=== PATIENT | female | born 1950 | race Hispanic/Latino ===

== ENCOUNTER 2017-12-30 00:14 | Emergency (ER) | payer OTHER ==
[2017-12-30] MEDS ORDERED: NA CHLORIDE 0.9% 500 ML ONE (00:39)
[2017-12-30] MEDS ORDERED: ONDANSETRON 4 MG/2 ML VIAL ONE (00:39)
[2017-12-30 00:55] LABS: Potassium 4.3 mEq/L (3.6-5.0)
[2017-12-30 01:00] LABS: Absolute Lymphocytes (CBC) 0.9 K/uL (0.7-4.9); Absolute Monocytes 0.5 K/uL (0.1-1.3); Absolute Neutrophil 8.7 K/uL (1.8-8.0); Basophils % 0.6 % (0-1.3); Eosinophils % 2.1 % (0-4.4); Hematocrit 29.8 % (36.0-45.0); MCH 25.3 pg (27.0-35.0); MCV 81.1 fL (80-100); MPV 6.9 fL (7.6-11.3); Monocytes % 4.4 % (3.3-12.3); RBC Red Blood Cell Count 3.67 M/uL (3.86-4.86)
[2017-12-30 01:01] LABS: Bilirubin Direct 0.1 mg/dL (0-0.2); Bilirubin Total 0.7 mg/dL (0.3-1.2); Protein, Total 7.6 g/dL (6.0-8.3)
[2017-12-30 01:20] LABS: Anisocytosis 1+; Blood Morphology Comment NOTED (NOT SEEN); Platelet Estimate ADEQ; Urine White Blood Cell Casts OK
[2017-12-30 01:22] LABS: Urine Blood TRACE (NEG); Urine Glucose NEGATIVE (NEG); Urine Protein NEGATIVE (NEG); Urine Specific Gravity 1.015 (1.005-1.030)
[2017-12-30 01:23] LABS: Urine Bacteria LOADED /HPF (<20); Urine Culture Reflex Order NOT NEEDED; Urine RBC <5 /HPF (NONE SEEN)
[2017-12-30] MEDS ORDERED: CEFTRIAXONE/SWI 1gm 1 GM/10 ML SYR ONE (01:48)
[2017-12-30] MEDS ORDERED: MEPERIDINE HCL 25 MG/0.5 ML ONE (01:48)
[2017-12-30] MEDS ORDERED: PANTOPRAZOLE 40 MG INJ ONE (03:10)
--- NOTE | 2017-12-30 03:54 | EDPHYS ---
Physician Documentation [facility] Name: Catalina Chapa Age: 67 yrs Sex: Female : 1950 Arrival Date: 12/30/2017 Time: 00:15 Bed 5 Private MD: ED Physician Kenney Gomes HPI: 12/30 01:09 This 67 yrs old Female presents to ER via EMS with complaints of abd pain, rn constipation. 01:09 The patient presents with abdominal pain that is diffuse. Onset: The symptoms/episode rn began/occurred today. The symptoms do not radiate. The symptoms are described as achy. Severity of pain: At its worst the pain was moderate in the emergency department the pain is unchanged. The patient has experienced similar episodes in the past. Reports chronic abd pain, has been evaluated for abd pain multiple times, comes in today because she is having worsening abd pain and constipated, hasn't had a bowel movement today, takes pain medication for her lung cancer, she has appt to be evaluated for chemotherapy tomorrow. States couldn't wait. + nausea. . Historical: - Allergies: 00:21 NKDA; bb - Home Meds: 00:21 aspirin 81 mg Oral chew 1 tab once daily [Active]; atorvastatin 40 mg Oral tab 1 tab bb once daily [Active]; metoprolol tartrate 50 mg Oral tab 1 tab 2 times per day [Active]; Levemir 2 units in the morning. subcutaneous [Active]; ferrous sulfate 325 mg (65 mg iron) Oral TbEC 325 mg three times a day [Active]; Novolog 100 unit/mL Sub-Q soln [Active]; Spiriva [Active]; - PMHx: 00:21 anemia-iron deficiency; CAD; chemotherapy; chronic renal disease; COPD; Diabetes - bb IDDM; Hearing Loss; Hypertension; Lung Cancer; Myocardial infarction; neuropathy; - PSHx: 00:21 None; bb - Immunization history:: Adult Immunizations unknown. - Social history:: Smoking status: unknown. - Family history:: not pertinent. - Hospitalizations: : No recent hospitalization is reported. ROS: 01:09 Constitutional: Negative for fever, chills Eyes: Negative for injury, pain, redness, rn and discharge, Neck: Negative for injury, pain, and swelling, Cardiovascular: Negative for chest pain, palpitations, and edema, Respiratory: Negative for shortness of breath, cough, wheezing, and pleuritic chest pain, Abdomen/GI: Negative for diarrhea Back: Negative for injury and pain, MS/Extremity: Negative for injury and deformity, Skin: Negative for injury, rash, and discoloration, Neuro: Negative for headache, numbness, tingling, and seizure. Exam: 01:09 Constitutional: This is a well developed, female, sitting upright, hard of hearing rn Head/Face: Normocephalic, atraumatic. Neck: Trachea midline, no thyromegaly or masses palpated, and no cervical lymphadenopathy. Supple, full range of motion without nuchal rigidity, or vertebral point tenderness. No Meningismus. Cardiovascular: Regular rate and rhythm with a normal S1 and S2. No gallops, murmurs, or rubs. Normal PMI, no JVD. No pulse deficits. Respiratory: mild tachypnea, no wheezing, no retractions Abdomen/GI: soft, non-distended, tender in all 4 quadrants, no peritoneal signs. MS/ Extremity: Pulses equal, no cyanosis. Neurovascular intact. Full, normal range of motion. Equal circumference. Neuro: Awake and alert, GCS 15, oriented to person, place, time, and situation. Cranial nerves II-XII grossly intact. Motor strength 5/5 in all extremities. Sensory grossly intact. Vital Signs: 00:21 BP 174 / 85; Pulse 95; Resp 22 S; Temp 99.1(O); Pulse Ox 98% on R/A; Weight 59.87 kg bb (R); Height 5 ft. 1 in. (154.94 cm) (R); Pain 10/10; 01:20 BP 196 / 71; Pulse 96; Resp 20; Pulse Ox 98% ; kb1 02:49 BP 203 / 96; Pulse 96; Resp 20 S; Pulse Ox 99% on R/A; bb 04:10 BP 161 / 87; Pulse 92; Resp 17 S; Temp 97.6(A); Pulse Ox 98% on R/A; bb 00:21 Body Mass Index 24.94 (59.87 kg, 154.94 cm) bb MDM: 00:15 Patient medically screened. rn 03:53 Differential diagnosis: appendicitis, bowel obstruction, non-specific abd pain, rn Ureterolithiasis, urinary tract infection. Data reviewed: vital signs, nurses notes, lab test result(s), radiologic studies, CT scan, and as a result, I will discharge patient. Counseling: I had a detailed discussion with the patient and/or guardian regarding: the historical points, exam findings, and any diagnostic results supporting the discharge/admit diagnosis, lab results, radiology results, the need for outpatient follow up, to return to the emergency department if symptoms worsen or persist or if there are any questions or concerns that arise at home. Response to treatment: the patient's symptoms have markedly improved after treatment, and as a result, I will discharge patient. Special discussion: I discussed with the patient/guardian in detail that at this point there is no indication for admission to the hospital. It is understood, however, that if the symptoms persist or worsen the patient needs to return immediately for re-evaluation. 12/30 00:18 Order name: Basic Metabolic Panel; Complete Time: rn 12/30 00:18 Order name: CBC with Diff; Complete Time: rn 12/30 00:18 Order name: Hepatic Function; Complete Time: rn 12/30 00:18 Order name: Lipase; Complete Time: rn 12/30 00:18 Order name: Urine Microscopic Only; Complete Time: rn 12/30 00:18 Order name: Urine Culture rn 12/30 00:18 Order name: CT Abd/Pelvis - W/Contrast rn 12/30 01:04 Order name: Urine Dipstick--Ancillary (enter results); Complete Time: rg2 12/30 01:20 Order name: CBC Smear Scan; Complete Time: EDMS 12/30 00:18 Order name: IV Saline Lock; Complete Time: rn 12/30 00:18 Order name: Labs collected and sent; Complete Time: rn 12/30 00:18 Order name: Urine Dipstick-Ancillary (obtain specimen); Complete Time: : rn Administered Medications: 00:28 Drug: Zofran 4 mg Route: IVP; Site: right antecubital; kb1 01:09 Follow up: Response: Nausea is decreased kb1 00:28 Drug: NS 0.9% 500 ml Route: IV; Rate: bolus; Site: right antecubital; kb1 01:39 Follow up: IV Status: Completed infusion; IV Intake: 500ml kb1 01:39 Drug: Demerol 25 mg Route: IVP; Site: right antecubital; kb1 02:34 Follow up: Response: Pain is decreased kb1 01:39 Drug: Rocephin - (cefTRIAXone) 1 grams Route: IVPB; Infused Over: 5 mins; Site: right kb1 antecubital; 01:40 Follow up: IV Status: Completed infusion kb1 01:40 Drug: NS 0.9% 500 ml Route: IV; Rate: bolus; Site: right antecubital; kb1 03:00 Follow up: IV Status: Completed infusion; IV Intake: 500ml bb 02:55 Drug: ProTONIX 40 mg Route: IVP; Site: right antecubital; bb 04:12 Follow up: Response: No adverse reaction bb Disposition: 12/30/17 03:53 Discharged to Home. Impression: Urinary tract infection, site not specified, Dehydration. - Condition is Stable. - Discharge Instructions: Dehydration, Adult, Urinary Tract Infection. - Prescriptions for Macrobid 100 mg Oral Capsule - take 1 capsule by ORAL route every 12 hours for 10 days; 20 capsule. Ultram 50 mg Oral Tablet - take 1 tablet by ORAL route every 6 hours As needed; 30 tablet. - Medication Reconciliation Form, Thank You Letter, Antibiotic Education, Prescription Opioid Use form. - Follow up: Private Physician; When: As needed; Reason: Recheck today's complaints, Re-evaluation by your physician. - Problem is new. - Symptoms have improved. Signatures: Dispatcher [employer] Darlene Briones RN RN bb Nieto, Roman, MD MD rn Brown, Kristina, RN RN kb1 Corrections: (The following items were deleted from the chart) 00:41 00:19 Creatinine for Radiology+C.LAB.BRZ ordered. EDMS EDMS
--- NOTE | 2017-12-30 03:54 | ER ---
Nurse's Notes [facility] Name: Catalina Chapa Age: 67 yrs Sex: Female : 1950 Arrival Date: 12/30/2017 Time: 00:15 Bed 5 Private MD: Diagnosis: Urinary tract infection, site not specified;Dehydration Presentation: 12/30 00:17 Presenting complaint: EMS states: they were toned out for report of generalized pain pt bb has stage III lung cancer and is scheduled to start chemo tomorrow, pt c/o pain to abdomen and has not had a bowel movement today, also pain in the right hip. Transition of care: patient was not received from another setting of care. Onset of symptoms was December 29, 2017. Care prior to arrival: Medication(s) given: Normal saline infusion, 300 mL IV initiated. 20 GA, in the right antecubital area. 00:17 Method Of Arrival: EMS: [facility] bb 00:17 Acuity: NATALYA 3 bb Historical: - Allergies: 00:21 NKDA; bb - Home Meds: 00:21 aspirin 81 mg Oral chew 1 tab once daily [Active]; atorvastatin 40 mg Oral tab 1 tab bb once daily [Active]; metoprolol tartrate 50 mg Oral tab 1 tab 2 times per day [Active]; Levemir 2 units in the morning. subcutaneous [Active]; ferrous sulfate 325 mg (65 mg iron) Oral TbEC 325 mg three times a day [Active]; Novolog 100 unit/mL Sub-Q soln [Active]; Spiriva [Active]; - PMHx: 00:21 anemia-iron deficiency; CAD; chemotherapy; chronic renal disease; COPD; Diabetes - bb IDDM; Hearing Loss; Hypertension; Lung Cancer; Myocardial infarction; neuropathy; - PSHx: 00:21 None; bb - Immunization history:: Adult Immunizations unknown. - Social history:: Smoking status: unknown. - Family history:: not pertinent. - Hospitalizations: : No recent hospitalization is reported. Screenin:30 Abuse screen: Denies threats or abuse. Nutritional screening: No deficits noted. kb1 Tuberculosis screening: No symptoms or risk factors identified. Fall Risk Assessment: 00:30 General: Appears in no apparent distress. unkempt, Behavior is cooperative, restless. kb1 Pain: Complains of pain in abdomen and right hip. Neuro: Level of Consciousness is awake, alert, obeys commands, Oriented to person, place, time, situation. Cardiovascular: Patient's skin is warm and dry. Respiratory: Airway is patent. GI: Abdomen is round Pt is actively vomiting Bowel sounds present X 4 quads. Abd is soft Abdomen is tender to palpation in right upper quadrant and right lower quadrant Reports constipation, nausea, vomiting, reports no BM since yesterday. Attempted today but unable to go. Reports that it is not uncommon for her to not have a BM every day. : No signs and/or symptoms were reported regarding the genitourinary system. 00:45 Reassessment: CT juice given by corrosion control technician, Pt states "I don't want to drink this" kb1 explained to Pt that the juice needed to be drank for the test. Pt taking small sips, family encouraged to help Pt remember to drink. 00:52 Reassessment: Finished CT juice, CT department notified. kb1 01:19 Reassessment: Patient appears in no apparent distress at this time. Patient and/or kb1 family updated on plan of care and expected duration. Pain level reassessed. Patient is alert, oriented x 3, equal unlabored respirations, skin warm/dry/pink. resting with eyes closed upon nurses entrance into room. warm blanket provided. 02:35 Reassessment: pt returned from CT via stretcher, A\\T\\O x 4, resp unlabored, states she bb has to go to the bathroom, pt assisted to the bathroom via wheelchair accompanied by daughter. 03:42 Reassessment: Patient and/or family updated on plan of care and expected duration. Pain ea level reassessed. Pt resting with eyes closed, respirations even and unlabored, chest expansions even and symmetrical. No s/s of pain or discomfort noted at this time. 04:09 Reassessment: pt appears to be sleeping, eyes closed, resp unlabored, arouses easily, bb verbalized understanding of and agrees to plan of care discharge instructions given pt assisted to exit via wheelchair accompanied by itzly. Vital Signs: 00:21 BP 174 / 85; Pulse 95; Resp 22 S; Temp 99.1(O); Pulse Ox 98% on R/A; Weight 59.87 kg bb (R); Height 5 ft. 1 in. (154.94 cm) (R); Pain 10/10; 01:20 BP 196 / 71; Pulse 96; Resp 20; Pulse Ox 98% ; kb1 02:49 BP 203 / 96; Pulse 96; Resp 20 S; Pulse Ox 99% on R/A; bb 04:10 BP 161 / 87; Pulse 92; Resp 17 S; Temp 97.6(A); Pulse Ox 98% on R/A; bb 00:21 Body Mass Index 24.94 (59.87 kg, 154.94 cm) bb ED Course: 00:15 Patient arrived in ED. ds1 00:15 Kenney Gomes MD is Attending Physician. rn 00:17 Lilo Saldana, NICHOLE is Primary Nurse. kb1 00:19 Triage completed. bb 00:21 Arm band placed on Patient placed in an exam room, on a stretcher, on educational aide, bb on pulse oximetry. 00:30 Patient has correct armband on for positive identification. Bed in low position. Call kb1 light in reach. Side rails up X2. instructional design specialist on. Pulse ox on. NIBP on. 00:30 No provider procedures requiring assistance completed. Maintain EMS IV. Dressing kb1 intact. Good blood return noted. Site clean \\T\\ dry. Gauge \\T\\ site: 20g Left AC. 01:08 Urine collected: straight cath specimen, clear. kb1 02:35 Report given to Darlene VARELA. kb1 02:37 CT Abd/Pelvis - W/Contrast In Process Unspecified. EDMS 02:40 Darlene Nayak, RN is Primary Nurse. bb 04:11 IV discontinued, intact, bleeding controlled, No redness/swelling at site. Pressure bb dressing applied. Administered Medications: 00:28 Drug: Zofran 4 mg Route: IVP; Site: right antecubital; kb1 01:09 Follow up: Response: Nausea is decreased kb1 00:28 Drug: NS 0.9% 500 ml Route: IV; Rate: bolus; Site: right antecubital; kb1 01:39 Follow up: IV Status: Completed infusion; IV Intake: 500ml kb1 01:39 Drug: Demerol 25 mg Route: IVP; Site: right antecubital; kb1 02:34 Follow up: Response: Pain is decreased kb1 01:39 Drug: Rocephin - (cefTRIAXone) 1 grams Route: IVPB; Infused Over: 5 mins; Site: right kb1 antecubital; 01:40 Follow up: IV Status: Completed infusion kb1 01:40 Drug: NS 0.9% 500 ml Route: IV; Rate: bolus; Site: right antecubital; kb1 03:00 Follow up: IV Status: Completed infusion; IV Intake: 500ml bb 02:55 Drug: ProTONIX 40 mg Route: IVP; Site: right antecubital; bb 04:12 Follow up: Response: No adverse reaction bb Intake: 01:39 IV: 500ml; Total: 500ml. kb1 03:00 IV: 500ml; Total: 1000ml. bb Outcome: 03:53 Discharge ordered by MD. rn 04:11 Discharged to home via wheelchair, with family. bb 04:11 Condition: stable 04:11 Discharge instructions given to patient, family, Instructed on discharge instructions, follow up and referral plans. medication usage, Demonstrated understanding of instructions, follow-up care, medications, Prescriptions given X 1. 04:12 Patient left the ED. bb Signatures: Dispatcher [employer] EDTX Flor Romano ds1 Darlene Nayak RN RN Kenney Mcnulty MD MD rn Antunez, Elena, RN RN ea Brown, Kristina, RN RN kb1
[2017-12-30 04:21] VITALS: BP 161/87; TEMP 97.6; O2SAT 98
--- NOTE | 2017-12-30 08:05 | RAD REPORT ---
EXAM DESCRIPTION: CT - Abdomen Pelvis W Contrast - 12/30/2017 6:51 am CLINICAL HISTORY: Abdominal pain. Lung cancer COMPARISON: October 2017 TECHNIQUE: Computed axial tomography of the abdomen and pelvis was obtained. 100 cc Isovue-300 is ad ministered intravenously. Oral contrast was given.A preliminary report was given by [employer] and reviewed prior to this dictation All CT scans are performed using dose optimization technique as appropriate and may include automated exposure control or mA/KV adjustment according to patient size. FINDINGS: The most superior slices demonstrate a 12 centimeter mass within the anterior right lung base. The ma ss abuts the right atrium and may involve the atrial wall. A 10 millimeter lower paraesophageal lymph node is present. Atherosclerosis results in a high-grade s tenosis of the left common iliac artery The liver, spleen, pancreas, adrenals and adrenals appear unremarkable. Couple of small right renal c ysts are present. A left nephrectomy has been performed. Fifteen millimeter structure within the left renal fossa may represent residual kidney. A gallstone is present without gallbladder wall thickening. The appendix is normal caliber. There is no evidence of diverticulitis A 39 millimeter metastasis involves the right aspect of the T12 vertebral body extending into the rig ht pedicle and right lamina. It involves the right neural foramina as well as the right anterolateral aspect of the spinal canal. 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 It involves the right neural foramina as well as the right anterolateral aspect of the spinal canal. The exam was discussed with Doctor [facility] 7:55 a.m. December 30, 2017
== END 2017-12-30 04:12 | disposition home or self-care (01) ==
LOC: ER 00:14
DX: N39.0 Urinary tract infection, site not specified (principal); I10 Essential (primary) hypertension; E11.9 Type 2 diabetes mellitus without complications; N18.9 Chronic kidney disease, unspecified; J44.9 Chronic obstructive pulmonary disease, unspecified; I25.2 Old myocardial infarction; Z79.82 Long term (current) use of aspirin; Z79.4 Long term (current) use of insulin; Z85.118 Personal history of other malignant neoplasm of bronchus and lung
CPT/HCPCS: 36415; 74177; 80048; 80076; 83690; 85025; 87077; 87086; 87088; 87186; 96361; 96374; 96375; 99284; C9113; J0696; J2175; J2405; Q9967; 81003; 81015

== ENCOUNTER 2018-01-06 15:55 | Emergency (ER) | payer OTHER ==
[2018-01-06] MEDS ORDERED: NA CHLORIDE 0.9% 1,000 ML ONE (16:53)
[2018-01-06] MEDS ORDERED: ONDANSETRON 4 MG/2 ML VIAL ONE (16:53)
[2018-01-06] MEDS ORDERED: FENTANYL CITR 100 MCG/2 ML ONE (16:53)
[2018-01-06 17:02] LABS: Absolute Lymphocytes (CBC) 0.7 K/uL (0.7-4.9); Absolute Monocytes 0.4 K/uL (0.1-1.3); Absolute Neutrophil 5.1 K/uL (1.8-8.0); Eosinophils % 1.5 % (0-4.4); Hematocrit 32.4 % (36.0-45.0); Lymphocytes % 11.5 % (15.3-44.8); MCH 25.9 pg (27.0-35.0); MCV 80.1 fL (80-100); Monocytes % 6.3 % (3.3-12.3); RBC Red Blood Cell Count 4.05 M/uL (3.86-4.86)
[2018-01-06 17:11] LABS: Potassium 4.5 mEq/L (3.6-5.0)
--- NOTE | 2018-01-06 17:12 | RAD REPORT ---
EXAM DESCRIPTION: Catherine Single View01/06/2018 5:04 pm CLINICAL HISTORY: Chest pain COMPARISON: December 30, 2017 FINDINGS: A mass is present within the right lung base. It appears less prominent probably secondary to differences in inspiration. The right hemidiaphragm remains elevated. The left lung appears clear of acute infiltrate. The heart is normal size. A central venous catheter has its tip in the superior vena cava pointing laterally
[2018-01-06 17:18] LABS: Albumin 3.4 g/dL (3.2-5.5); Bilirubin Direct 0.1 mg/dL (0-0.2); Bilirubin Total 0.5 mg/dL (0.3-1.2); Protein, Total 8.5 g/dL (6.0-8.3)
[2018-01-06 18:29] LABS: Urine Blood NEGATIVE (NEG); Urine Glucose NEGATIVE (NEG); Urine Protein 1+ (NEG); Urine Specific Gravity 1.015 (1.005-1.030)
[2018-01-06 19:20] LABS: Urine Amorphous Sediment 1+ /HPF (NONE SEEN); Urine Bacteria <20 /HPF (<20); Urine Culture Reflex Order NOT NEEDED; Urine RBC <5 /HPF (NONE SEEN)
[2018-01-06] MEDS ORDERED: HYDROCODONE/APAP 5/325 MG TAB ONE (19:30)
--- NOTE | 2018-01-06 19:31 | EDPHYS ---
Physician Documentation [facility] Name: Catalina Chapa Age: 67 yrs Sex: Female : 1950 Arrival Date: 01/06/2018 Time: 15:57 Bed 18 Private MD: ED Physician Nimesh Davison HPI: 01/06 16:54 This 67 yrs old Female presents to ER via Wheelchair with complaints of wa Gallstones. 16:54 The patient presents with abdominal pain per family, abd pain x 2 months. known wa gallstones but does not want surgery. sent from her doctor's office today for pain control in ED. pt c/o pain in ED. denies vomiting. pt with h/o lung CA. apparently at doc's office to talk about hospice care. Onset: The symptoms/episode began/occurred 2 month(s) ago. The symptoms do not radiate. Associated signs and symptoms: Pertinent positives: nausea, Pertinent negatives: fever, shortness of breath, vomiting. The symptoms are described as achy. Modifying factors: The symptoms are alleviated by nothing, the symptoms are aggravated by nothing. Severity of pain: At its worst the pain was moderate in the emergency department the pain is unchanged. The patient has experienced similar episodes in the past, a few times. The patient has been recently seen by a physician: her oncologist. Historical: - Allergies: 16:06 NKDA; aj - Home Meds: 16:06 aspirin 81 mg Oral chew 1 tab once daily [Active]; atorvastatin 40 mg Oral tab 1 tab aj once daily [Active]; ferrous sulfate 325 mg (65 mg iron) Oral TbEC 325 mg three times a day [Active]; Levemir 2 units in the morning. subcutaneous [Active]; metoprolol tartrate 50 mg Oral tab 1 tab 2 times per day [Active]; Novolog 100 unit/mL Sub-Q soln [Active]; Spiriva [Active]; Tramadol Oral [Active]; - PMHx: 16:06 anemia-iron deficiency; CAD; chemotherapy; chronic renal disease; COPD; Diabetes - aj IDDM; Hearing Loss; Hypertension; Lung Cancer; Myocardial infarction; neuropathy; - PSHx: 16:06 None; aj - Immunization history:: Adult Immunizations up to date. - Social history:: Smoking status: Patient uses tobacco products, smokes one-half pack cigarettes per day. - Family history:: not pertinent. - Hospitalizations: : No recent hospitalization is reported. ROS: 16:58 Constitutional: Negative for fever, chills, and weight loss, Eyes: Negative for injury, wa pain, redness, and discharge, ENT: Negative for injury, pain, and discharge, Neck: Negative for injury, pain, and swelling, Cardiovascular: Negative for chest pain, palpitations, and edema, Respiratory: Negative for shortness of breath, cough, wheezing, and pleuritic chest pain, Back: Negative for injury and pain, : Negative for injury, bleeding, discharge, and swelling, MS/Extremity: Negative for injury and deformity, Skin: Negative for injury, rash, and discoloration, Neuro: Negative for headache, weakness, numbness, tingling, and seizure. 16:58 Abdomen/GI: Positive for abdominal pain, Negative for vomiting, diarrhea. 16:58 All other systems are negative. Exam: 16:59 Constitutional: This is a well developed, well nourished patient who is awake, alert, wa and in no acute distress. Head/Face: Normocephalic, atraumatic. Eyes: Pupils equal round and reactive to light, extra-ocular motions intact. Lids and lashes normal. Conjunctiva and sclera are non-icteric and not injected. Cornea within normal limits. Periorbital areas with no swelling, redness, or edema. ENT: Nares patent. No nasal discharge, no septal abnormalities noted. Tympanic membranes are normal and external auditory canals are clear. Oropharynx with no redness, swelling, or masses, exudates, or evidence of obstruction, uvula midline. Mucous membranes moist. Neck: Trachea midline, no thyromegaly or masses palpated, and no cervical lymphadenopathy. Supple, full range of motion without nuchal rigidity, or vertebral point tenderness. No Meningismus. Cardiovascular: Regular rate and rhythm with a normal S1 and S2. No gallops, murmurs, or rubs. Normal PMI, no JVD. No pulse deficits. Respiratory: Lungs have equal breath sounds bilaterally, clear to auscultation and percussion. No rales, rhonchi or wheezes noted. No increased work of breathing, no retractions or nasal flaring. Back: No spinal tenderness. No costovertebral tenderness. Full range of motion. Skin: Warm, dry with normal turgor. Normal color with no rashes, no lesions, and no evidence of cellulitis. MS/ Extremity: Pulses equal, no cyanosis. Neurovascular intact. Full, normal range of motion. Neuro: Awake and alert, GCS 15, oriented to person, place, time, and situation. Cranial nerves II-XII grossly intact. Motor strength 5/5 in all extremities. Sensory grossly intact. Cerebellar exam normal. Normal gait. Psych: Awake, alert, with orientation to person, place and time. Behavior, mood, and affect are within normal limits. 16:59 Abdomen/GI: Inspection: abdomen appears normal, Bowel sounds: normal, in all quadrants, Palpation: moderate abdominal tenderness, in all quadrants. Vital Signs: 16:06 BP 97 / 61; Pulse 76; Resp 16; Temp 97.6; Pulse Ox 97% on R/A; Weight 58.97 kg; Height aj 5 ft. 1 in. (154.94 cm); Pain 10/10; 18:09 BP 135 / 64; Pulse 73; Resp 16; Pulse Ox 96% on R/A; Pain 7/10; ss 19:15 BP 162 / 76; Pulse 71; Resp 15; Temp 97.9(O); Pulse Ox 100% on R/A; Pain 8/10; bs1 16:06 Body Mass Index 24.56 (58.97 kg, 154.94 cm) aj MDM: 16:16 Patient medically screened. wa 17:00 Differential diagnosis: will check for acute process. pain control. reassess. pr 19:27 Data reviewed: vital signs, nurses notes, lab test result(s), radiologic studies. pr 19:28 Test interpretation: by ED physician or midlevel provider: mild hyponatremia. renal wa insufficiency. . 19:28 Test interpretation: by ED physician or midlevel provider: CXR: mass R lung. improved wa from previous xray. Response to treatment: the patient's symptoms have markedly improved after treatment. ED course: pt treat for pain. pt and family do not want any further intervention. will d/c home. 01/06 16:28 Order name: Basic Metabolic Panel; Complete Time: 17:35 pr 01/06 16:28 Order name: CBC with Diff; Complete Time: 17:35 pr 01/06 16:28 Order name: Hepatic Function; Complete Time: 17:35 pr 01/06 16:28 Order name: Lipase; Complete Time: 17:35 pr 01/06 16:28 Order name: Urine Microscopic Only; Complete Time: 19:23 pr 01/06 18:09 Order name: Urine Dipstick--Ancillary (enter results); Complete Time: 18:52 [facility] 01/06 16:28 Order name: IV Saline Lock; Complete Time: 16:45 pr 01/06 16:28 Order name: Labs collected and sent; Complete Time: 16:45 pr 01/06 16:28 Order name: Urine Dipstick-Ancillary (obtain specimen); Complete Time: 18:09 pr 01/06 16:28 Order name: Chest Single View XRAY; Complete Time: 17:35 pr Administered Medications: 16:58 Drug: Zofran 4 mg Route: IVP; Site: right antecubital; ss 17:22 Follow up: Response: No adverse reaction ss 17:01 Drug: NS 0.9% 1000 ml Route: IV; Rate: 1 bolus; Site: right antecubital; ss 19:44 Follow up: IV Status: Completed infusion bs1 17:01 Drug: fentaNYL (PF) 75 mcg Route: IVP; Site: right antecubital; ss 17:23 Follow up: Response: No adverse reaction; Pain is decreased ss 19:34 Drug: Monroe 5 mg-325 mg 1 tabs Route: PO; bs1 19:44 Follow up: Response: No adverse reaction bs1 Disposition: 01/06/18 19:30 Discharged to Home. Impression: abdominal pain. - Condition is Stable. - Prescriptions for Tylenol- Codeine #3 300-30 mg Oral Tablet - take 2 tablet by ORAL route every 6 hours As needed; 30 tablet. Zofran 4 mg Oral Tablet - take 1 tablet by ORAL route every 12 hours As needed; 20 tablet. - Medication Reconciliation Form, Thank You Letter, Antibiotic Education, Prescription Opioid Use form. - Follow up: Private Physician; When: 2 - 3 days; Reason: Re-evaluation by your physician. - Problem is an acute exacerbation. - Symptoms have improved. - Notes: follow up with your doctor as discussed. return for intractable pain Signatures: Dispatcher [employer] Darlin Dodson RN RN aj Smirch, Shelby, RN RN Nimesh Davison MD MD wa Salazar, Brittany, NICHOLE RN bs1
--- NOTE | 2018-01-06 19:31 | ER ---
Nurse's Notes [facility] Name: Catalina Chapa Age: 67 yrs Sex: Female : 1950 Arrival Date: 01/06/2018 Time: 15:57 Bed 18 Private MD: Diagnosis: abdominal pain Presentation: 01/06 16:04 Presenting complaint: Child states: Patient was attempting to obtain order for hospice, aj but PCP wants patient evaluated for dehydration and low blood pressure. Transition of care: patient was not received from another setting of care. Onset of symptoms was October 2017. Care prior to arrival: None. 16:04 Method Of Arrival: Wheelchair aj 16:04 Acuity: NATALYA 3 aj Triage Assessment: 16:06 General: Appears in no apparent distress. uncomfortable, Behavior is cooperative, aj drowsy. Pain: Complains of pain in epigastric area. Neuro: Level of Consciousness is awake, obeys commands, lethargic, Oriented to person, place, time, situation. Respiratory: Airway is patent Respiratory effort is even, unlabored, Respiratory pattern is regular, symmetrical. GI: Reports upper abdominal pain. Derm: Skin is intact, is healthy with good turgor, Skin is pink, warm \T\ dry. normal. Historical: - Allergies: 16:06 NKDA; aj - Home Meds: 16:06 aspirin 81 mg Oral chew 1 tab once daily [Active]; atorvastatin 40 mg Oral tab 1 tab aj once daily [Active]; ferrous sulfate 325 mg (65 mg iron) Oral TbEC 325 mg three times a day [Active]; Levemir 2 units in the morning. subcutaneous [Active]; metoprolol tartrate 50 mg Oral tab 1 tab 2 times per day [Active]; Novolog 100 unit/mL Sub-Q soln [Active]; Spiriva [Active]; Tramadol Oral [Active]; - PMHx: 16:06 anemia-iron deficiency; CAD; chemotherapy; chronic renal disease; COPD; Diabetes - aj IDDM; Hearing Loss; Hypertension; Lung Cancer; Myocardial infarction; neuropathy; - PSHx: 16:06 None; aj - Immunization history:: Adult Immunizations up to date. - Social history:: Smoking status: Patient uses tobacco products, smokes one-half pack cigarettes per day. - Family history:: not pertinent. - Hospitalizations: : No recent hospitalization is reported. Screenin:29 Abuse screen: Denies threats or abuse. Denies injuries from another. Nutritional ss screening: No deficits noted. Tuberculosis screening: Never had TB. Fall Risk Fall Risk No fall in past 12 months (0 pts). Secondary diagnosis (15 points) impaired mobility, IV access (20 points). Ambulatory Aid- None/Bed Rest/Nurse Assist (0 pts). Gait- Normal/Bed Rest/Wheelchair (0 pts) Mental Status- Oriented to own ability (0 pts). Assessment: 16:30 General: Appears uncomfortable, Behavior is cooperative, anxious, Denies fever, chills. ss Pain: Complains of pain in epigastric area and right upper quadrant Pain currently is 10 out of 10 on a pain scale. Neuro: Level of Consciousness is awake, alert, obeys commands, Oriented to person, place, situation. Cardiovascular: Capillary refill < 3 seconds is brisk in bilateral fingers. Respiratory: Airway is patent Respiratory effort is even, unlabored, Respiratory pattern is regular, symmetrical, Breath sounds are clear bilaterally. EENT: Nares are clear Oral mucosa is moist. Throat is clear is pink. Derm: Skin is intact, is healthy with good turgor, Skin is dry, Skin is pink, warm \T\ dry. normal. Musculoskeletal: Circulation, motion, and sensation intact. Swelling absent. Vital Signs: 16:06 BP 97 / 61; Pulse 76; Resp 16; Temp 97.6; Pulse Ox 97% on R/A; Weight 58.97 kg; Height aj 5 ft. 1 in. (154.94 cm); Pain 10/10; 18:09 BP 135 / 64; Pulse 73; Resp 16; Pulse Ox 96% on R/A; Pain 7/10; ss 19:15 BP 162 / 76; Pulse 71; Resp 15; Temp 97.9(O); Pulse Ox 100% on R/A; Pain 8/10; bs1 16:06 Body Mass Index 24.56 (58.97 kg, 154.94 cm) ED Course: 15:57 Patient arrived in ED. as 16:06 Triage completed. aj 16:06 Arm band placed on left wrist. Patient placed in an exam room. aj 16:16 Nimesh Davison MD is Attending Physician. wa 16:28 Molly Yeboah, NICHOLE is Primary Nurse. ss 16:28 Inserted saline lock: 22 gauge in right antecubital area, using aseptic technique. ss Blood collected. 16:29 Patient has correct armband on for positive identification. Placed in gown. Bed in low ss position. Side rails up X2. Pulse ox on. NIBP on. Warm blanket given. 17:02 X-ray completed. Portable x-ray completed in exam room. Patient tolerated procedure kc2 well. 17:03 Chest Single View XRAY In Process Unspecified. EDMS 18:09 Straight cath inserted, using sterile technique, 16 Fr. Specimen obtained. Returned ss jim urine. Patient tolerated well. 19:43 No provider procedures requiring assistance completed. IV discontinued, bleeding bs1 controlled, No redness/swelling at site. Pressure dressing applied. Administered Medications: 16:58 Drug: Zofran 4 mg Route: IVP; Site: right antecubital; ss 17:22 Follow up: Response: No adverse reaction ss 17:01 Drug: NS 0.9% 1000 ml Route: IV; Rate: 1 bolus; Site: right antecubital; ss 19:44 Follow up: IV Status: Completed infusion bs1 17:01 Drug: fentaNYL (PF) 75 mcg Route: IVP; Site: right antecubital; ss 17:23 Follow up: Response: No adverse reaction; Pain is decreased ss 19:34 Drug: Roslyn 5 mg-325 mg 1 tabs Route: PO; bs1 19:44 Follow up: Response: No adverse reaction bs1 Outcome: 19:30 Discharge ordered by . md 19:43 Discharged to home via wheelchair, with family. bs1 19:43 Condition: stable 19:43 Discharge instructions given to patient, family, Instructed on discharge instructions, follow up and referral plans. medication usage, Demonstrated understanding of instructions, follow-up care, medications, Prescriptions given X 1. 19:57 Patient left the ED. bs1 Signatures: Dispatcher [employer] Darlin Dodson RN RN aj Martinez, Amelia as Smirch, Shelby, RN RN ss Carr, Kelsie kc2 Nimesh Davison MD MD wa Salazar, Brittany, RN RN bs1 Corrections: (The following items were deleted from the chart) 16:30 16:29 Fall Risk ss ss
[2018-01-06 20:06] VITALS: BP 162/76; TEMP 97.9; O2SAT 100
== END 2018-01-06 19:57 | disposition home or self-care (01) ==
LOC: ER 15:55
DX: R10.9 Unspecified abdominal pain (principal); I12.9 Hypertensive chronic kidney disease with stage 1 through stage 4 chronic kidney disease, or unspecified chronic kidney disease; E11.22 Type 2 diabetes mellitus with diabetic chronic kidney disease; N18.9 Chronic kidney disease, unspecified; D50.9 Iron deficiency anemia, unspecified; I25.2 Old myocardial infarction; I25.10 Atherosclerotic heart disease of native coronary artery without angina pectoris; Z85.118 Personal history of other malignant neoplasm of bronchus and lung; Z79.4 Long term (current) use of insulin; Z79.82 Long term (current) use of aspirin
CPT/HCPCS: 36415; 51702; 71045; 80048; 80076; 83690; 85025; 96361; 96374; 96375; 99284; J2405; J3010; J7030; 81003; 81015

== ENCOUNTER 2018-01-31 22:02 | Emergency (ER) | payer OTHER ==
--- OUTSIDE RECORDS SUMMARY | 2018-01-31 22:04 | XMS REPORT ---
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 Problem Type 2 diabetes mellitus without E11.9 Active complications Problem Cigarette nicotine dependence F17.210 Active without complication Problem Coronary artery disease I25.10 Active Problem Diabetic neuropathy E11.40 Active Problem Type 2 diabetes E11.9 Active Problem Lung mass R91.8 Active Problem Iron deficiency anemia due to D50.0 Active chronic blood loss Problem Chronic obstructive pulmonary J44.9 Active disease Problem Hypertension I10 Active Problem Non-small cell lung cancer (NSCLC) C34.90 Active Problem Chronic renal disease N18.9 Active Problem Hearing loss, bilateral H91.93 Active Medications No Known Medications Results No Known Results Summary Purpose [employer] Submission
--- OUTSIDE RECORDS SUMMARY | 2018-01-31 22:05 | XMS REPORT ---
:1950 Author Organization [employer] Care Team Providers Name Role Phone Perez, Melida Provider Role Unavailable Allergies, Adverse Reactions, Alerts Substance Reaction Event Type N.K.D.A. 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 Problem Non-small cell lung cancer (NSCLC) C34.90 Active Assessment Shaking R25.1 Active Problem Hearing loss, bilateral H91.93 Active Assessment Mixed hyperlipidemia E78.2 Active Problem 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 Active Problem Mixed hyperlipidemia E78.2 Active Problem Nicotine dependence F17.200 Active Problem Depression with anxiety F41.8 Active Problem jail current use of insulin Z79.4 Active Assessment Chronic obstructive pulmonary J44.9 Active disease Assessment Non-small cell lung cancer (NSCLC) C34.90 Active Problem Unsteady gait R26.81 Active Assessment Hypertension I10 Active Problem Shaking R25.1 Active Problem Spine [...] Active disease Problem Hypertension I10 Active Problem Chronic renal disease N18.9 Active Medications Medication Code Code Instructions Start End Status Dosage System Date Date Lyrica [facility] 19282152028 75 MG Orally December Active 1 capsule 1 Twice a day 2017 to 3 hours before bedtime in the evening Mirtazapine [facility] 24696193771 15 MG Orally December Active 1 tablet on Once a day 2017 the tongue and allow to dissolve at bedtime Metoprolol ND 21089068120 50 MG Orally Active 1 tablet Tartrate Twice a day with food Spiriva ND 14968998665 2.5 MCG/ACT May 13, Active 2 puffs Respimat Inhalation Once 2017 a day Levemir ND 88062926009 100 UNIT/ML Active 2 FlexTouch Subcutaneous once a day Ventolin HFA ND 57934492175 90 MCG/ACT Active 2 puffs as Inhalation needed every 6 hrs Aspir-81 [facility] 87961289299 81 MG Orally Active 1 tablet Once a day NovoLog ND 74060855272 100 UNIT/ML Inactive sliding Flexpen Subcutaneous scale three times a day Symbicort ND 12579861995 160-4.5 MCG/ACT May 13, Active 2 puffs Inhalation 2017 Twice a day Ferrous [facility] 68870706204 325 (65 Fe) MG Active 1 tablet Sulfate Orally twice a day Zofran [facility] 25738303776 4 MG Orally Active 1 tablet twice a day Mirtazapine [facility] 28584157989 7.5 MG Orally December Active 2 tablets Once a day 2017 at bedtime Lipitor [facility] 78575722236 40 MG Active TAKE 1 TABLET BY MOUTH EVERY DAY Results No Known Results Summary Purpose e[employer]Works Submission
--- OUTSIDE RECORDS SUMMARY | 2018-01-31 22:05 | XMS REPORT ---
:1950 Author Organization [employer] Care Team Providers Name Role Phone Melida Peerz Provider Role Unavailable Allergies, Adverse Reactions, Alerts Substance Reaction Event Type N.K.D.A. 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 Active Problem Unsteady gait R26.81 Active Problem [...] cell lung cancer (NSCLC) C34.90 Active Assessment Weakness R53.1 Active Problem Chronic renal disease N18.9 Active Problem Hearing loss, bilateral H91.93 Active Medications Medication Code Code Instructions Start End Status Dosage System Date Date Ventolin HFA ND 97997031298 90 MCG/ACT Active 2 puffs as Inhalation every needed 6 hrs Symbicort ND 91875081815 160-4.5 MCG/ACT Active 2 puffs Inhalation Twice a day Levemir ND 49086500517 100 UNIT/ML Active not FlexTouch Subcutaneous defined Spiriva ND 04160069888 2.5 MCG/ACT Active 2 puffs Respimat Inhalation Once a day Zofran ND 81876073651 4 MG Orally Active 1 tablet twice a day Ferrous ND 12743248337 325 (65 Fe) MG Active 1 tablet Sulfate Orally twice a day Metoprolol [facility] 38280477726 50 MG Orally Active 1 tablet Tartrate Twice a day with food NovoLog [facility] 61639736980 100 UNIT/ML Active not Flexpen Subcutaneous defined Aspir-81 [facility] 19520144448 81 MG Orally Active 1 tablet Once a day Lipitor [facility] 54361302005 40 MG Active TAKE 1 TABLET BY MOUTH EVERY DAY Results No Known Results Summary Purpose [employer]ClinicalWorks Submission
[2018-02-01] MEDS ORDERED: PROMETHAZINE 25 MG/ML VIAL ONE (01:00)
[2018-02-01] MEDS ORDERED: MORPHINE 4 MG/ML SYR ONE (01:02)
[2018-02-01 02:17] LABS: Protime INR 1.12
[2018-02-01 02:19] LABS: Absolute Lymphocytes (CBC) 0.5 K/uL (0.7-4.9); Absolute Monocytes 0.5 K/uL (0.1-1.3); Absolute Neutrophil 7.2 K/uL (1.8-8.0); Basophils % 0.5 % (0-1.3); Eosinophils % 0.6 % (0-4.4); Hematocrit 30.7 % (36.0-45.0); Lymphocytes % 6.1 % (15.3-44.8); MCH 26.9 pg (27.0-35.0); MCV 83.8 fL (80-100); MPV 7.8 fL (7.6-11.3); Monocytes % 6.5 % (3.3-12.3); RBC Red Blood Cell Count 3.67 M/uL (3.86-4.86)
[2018-02-01 02:37] LABS: Bicarbonate 28 mEq/L (21-31); Glucose Level 85 mg/dL (65-120); Sodium Level 136 mEq/L (135-145)
[2018-02-01 02:39] LABS: CKMB Creatine Kinase MB 1.3 ng/ml (0.3-4.0)
[2018-02-01 02:40] LABS: Lipase < 10 U/L (22-51)
[2018-02-01 02:43] LABS: ALT/SGPT 14 IU/L (10-60); AST/SGOT 15 IU/L (10-42); Albumin 2.9 g/dL (3.2-5.5); Alkaline Phosphatase 103 IU/L (42-121); BUN Blood Urea Nitrogen 21 mg/dL (6-20); Bilirubin Direct 0.1 mg/dL (0-0.2); Bilirubin Total 0.9 mg/dL (0.3-1.2); Creatine Phosphokinase 26 IU/L (22-269); Magnesium 1.9 mg/dL (1.8-2.5); Protein, Total 6.6 g/dL (6.0-8.3)
[2018-02-01 03:32] LABS: Blood Morphology Comment NOT SEEN (NOT SEEN); Platelet Estimate ADEQ
--- NOTE | 2018-02-01 04:50 | ER ---
Nurse's Notes [facility] Name: Martina Chapa Age: 67 yrs Sex: Female : 1950 Arrival Date: 01/31/2018 Time: 22:03 Bed 17 Private MD: Diagnosis: Fracture of fourth cervical vertebra-pathologic ;Anemia, unspecified;Bandemia;Type 2 diabetes mellitus;Dyspnea-lung cancer. right Presentation: 01/31 22:04 Presenting complaint: EMS states: "Patient has lung cancer, had radiation today in bs1 [place], patient c/o neck pain, base of neck pain, and swelling in feet for 7 days.". Transition of care: patient was not received from another setting of care. Onset of symptoms was January 25, 2018. Initial Sepsis Screen: Does the patient meet any 2 criteria? No. Patient's initial sepsis screen is negative. Does the patient have a suspected source of infection? No. Patient's initial sepsis screen is negative. Care prior to arrival: Glucose check: 118. 22:04 Method Of Arrival: EMS: [facility] bs1 22:04 Acuity: NATALYA 3 bs1 Historical: - Allergies: 22:08 NKDA; bs1 - Home Meds: 23:13 ferrous sulfate 325 mg (65 mg iron) Oral TbEC 325 mg twice a day [Active]; atorvastatin lp1 40 mg Oral tab 1 tab once daily [Active]; aspirin 81 mg oral TbEC once daily [Active]; Lyrica 50 mg Oral daily [Active]; metoprolol tartrate 50 mg Oral tab 1 tab 2 times per day [Active]; 23:15 Levemir 2 units in the morning. subcutaneous [Active]; [place] 5-325 mg Oral tab 1 tab lp1 every 6 hours [Active]; - PMHx: 22:08 anemia-iron deficiency; Hypertension; Lung Cancer; CAD; Diabetes - IDDM; COPD; Hearing bs1 Loss; Myocardial infarction; neuropathy; chronic renal disease; chemotherapy; radiation; - PSHx: 22:08 1 kidney removed; bs1 - Immunization history:: Adult Immunizations unknown. - Social history:: Smoking status: Patient/guardian denies using tobacco. - Family history:: not pertinent. Screenin:59 Abuse screen: Denies threats or abuse. Denies injuries from another. Nutritional lp1 screening: No deficits noted. Tuberculosis screening: No symptoms or risk factors identified. Fall Risk Total Charles Fall Scale indicates High Risk Score (45 or more points). Fall prevention measures have been instituted. Side Rails Up X 2 As available patient and family educated on Fall Prevention Program and Strategies. Assessment: 22:15 General: Appears uncomfortable, Behavior is anxious. Pain: Complains of pain in back of lp1 neck Pain currently is 10 out of 10 on a pain scale. Quality of pain is described as sharp, Pain began gradually. Neuro: Level of Consciousness is awake, alert, obeys commands, Oriented to person, place, situation. Cardiovascular: Patient's skin is warm and dry. Respiratory: Respiratory effort is even, unlabored. GI: Abdomen is non-distended. : No signs and/or symptoms were reported regarding the genitourinary system. EENT: No signs and/or symptoms were reported regarding the EENT system. Derm: Skin is pink, warm \\T\\ dry. Musculoskeletal: Circulation, motion, and sensation intact. 02/01 00:52 Reassessment: Attempted to place IV with no success. Pt states that she is tired of fc being stuck. I offered Midline to upper arm with ultrasound and pt refused. She states that she would rather have a shot. Discussed with Dr Correia and pt to get Morphine and Phenergan IM. 01:30 Reassessment: Patient returned from CT, states pain " a little better but it still lp1 hurts". 02:30 Reassessment: Patient appears in no apparent distress at this time. Patient resting, lp1 eyes closed, family at bedside. 03:30 Reassessment: Patient has changed mind and does not want to be transferred, would lp1 rather go home and follow-up with oncologist. 04:30 Reassessment: Dr. Correia notified of patient stating "I'm ready to go home", daughter lp1 states they will follow-up with Dr. Olguin today, appointment at 1400 today; Aware of waiting for Dr. Olguin's office to call ER back but continues to want to leave. Vital Signs: 01/31 22:08 BP 121 / 80; Pulse 85; Resp 20; Temp 98.9(O); Pulse Ox 96% on R/A; Weight 58.97 kg; bs1 Height 5 ft. 1 in. (154.94 cm); Pain 10/10; 22:59 BP 146 / 71; Pulse 81; Resp 19; Pulse Ox 96% on R/A; lp1 02/01 00:00 BP 145 / 61; Pulse 84; Resp 18; Pulse Ox 96% on R/A; lp1 01:30 BP 146 / 63; Pulse 77; Resp 18; Pulse Ox 96% on R/A; lp1 02:30 BP 158 / 75; Pulse 78; Resp 13; Pulse Ox 98% on R/A; lp1 03:30 BP 149 / 66; Pulse 78; Resp 16; Pulse Ox 98% on R/A; lp1 04:30 BP 145 / 68; Pulse 78; Resp 16; Pulse Ox 97% on R/A; Pain 5/10; lp1 01/31 22:08 Body Mass Index 24.56 (58.97 kg, 154.94 cm) bs1 ED Course: 01/31 22:03 Patient arrived in ED. bs1 22:07 Triage completed. bs1 22:57 Jenna Farrar, RN is Primary Nurse. lp1 22:57 Arm band placed on. lp1 22:59 Patient has correct armband on for positive identification. Placed in gown. Bed in low lp1 position. container filler on. Pulse ox on. NIBP on. 23:28 Beto Correia MD is Attending Physician. [facility] 02/01 00:20 X-ray completed. Portable x-ray completed in exam room. Patient tolerated procedure kw well. 00:21 XRAY Chest (1 view) In Process Unspecified. EDMS 00:49 Missed attempt(s): 22 gauge in right antecubital area. fc 01:25 CT Head C Spine In Process Unspecified. EDMS 04:43 No provider procedures requiring assistance completed. Patient did not have IV access lp1 during this emergency room visit. Administered Medications: 00:51 Not Given (Patient Refused): NS 0.9% 1000 ml IV at 75 ml/hr continuous fc 00:51 Not Given (Patient Refused): fentaNYL (PF) 25 mcg IVP once fc 00:51 Not Given (Patient Refused): fentaNYL (PF) 25 mcg IVP once fc 00:51 Not Given (Patient Refused): Zofran 4 mg IVP once; over 2 minutes fc 01:07 Drug: Phenergan 12.5 mg Route: IM; Site: right gluteus; ak1 03:52 Follow up: Response: No adverse reaction; Marked relief of symptoms lp1 01:07 Drug: morphine 5 mg Route: IM; Site: right gluteus; ak1 03:53 Follow up: Response: Pain is decreased lp1 Outcome: 04:43 AMA AMA form signed lp1 04:43 Condition: stable 04:43 Instructed on returning to ER if symptoms worsen 04:52 Patient left the ED. lp1 Signatures: Dispatcher [employer] EDBeto Frias MD MD cha Chretien, Felicia, RN RN Kristen Murphy Laura, RN RN lp1 Josefa Malone RN RN ak1 Adwoa Andrade RN RN bs1 Corrections: (The following items were deleted from the chart) 01/31 22:10 22:04 Care prior to arrival: Glucose check: 130 bs1 bs1
--- NOTE | 2018-02-01 04:50 | EDPHYS ---
Physician Documentation [facility] Name: Martina Chapa Age: 67 yrs Sex: Female : 1950 Arrival Date: 01/31/2018 Time: 22:03 Bed 17 Private MD: REMI Physician Beto Correia HPI: 01/31 23:49 This 67 yrs old Female presents to ER via EMS with complaints of Neck Pain, yandel >24Hrs Old, Leg Swelling. 23:49 The patient or guardian complains of decreased range of motion, pain. The symptoms are yandel located at the C1, C2, C3, C4, C5, C6 and C7. Onset: The symptoms/episode began/occurred 3 day(s) ago. Context: The problem was sustained at an unknown location. Associated signs and symptoms: The patient has no apparent associated signs or symptoms. The pain does not radiate. Modifying factors: The symptoms are alleviated by nothing. the symptoms are aggravated by nothing. Severity of symptoms: At their worst the symptoms were mild, moderate, in the emergency department the symptoms are unchanged. The patient has experienced similar episodes in the past, several times. Historical: - Allergies: 22:08 NKDA; bs1 - Home Meds: 23:13 ferrous sulfate 325 mg (65 mg iron) Oral TbEC 325 mg twice a day [Active]; atorvastatin lp1 40 mg Oral tab 1 tab once daily [Active]; aspirin 81 mg oral TbEC once daily [Active]; Lyrica 50 mg Oral daily [Active]; metoprolol tartrate 50 mg Oral tab 1 tab 2 times per day [Active]; 23:15 Levemir 2 units in the morning. subcutaneous [Active]; [place] 5-325 mg Oral tab 1 tab lp1 every 6 hours [Active]; - PMHx: 22:08 anemia-iron deficiency; Hypertension; Lung Cancer; CAD; Diabetes - IDDM; COPD; Hearing bs1 Loss; Myocardial infarction; neuropathy; chronic renal disease; chemotherapy; radiation; - PSHx: 22:08 1 kidney removed; bs1 - Immunization history:: Adult Immunizations unknown. - Social history:: Smoking status: Patient/guardian denies using tobacco. - Family history:: not pertinent. ROS: 23:49 Constitutional: Negative for fever, chills, and weight loss, Eyes: Negative for injury, yandel pain, redness, and discharge, ENT: Negative for injury, pain, and discharge, Cardiovascular: Negative for chest pain, palpitations, and edema, Respiratory: Negative for shortness of breath, cough, wheezing, and pleuritic chest pain, Abdomen/GI: Negative for abdominal pain, nausea, vomiting, diarrhea, and constipation, : Negative for injury, bleeding, discharge, and swelling, MS/Extremity: Negative for injury and deformity, Skin: Negative for injury, rash, and discoloration, Neuro: Negative for headache, weakness, numbness, tingling, and seizure, Psych: Negative for depression, anxiety, suicide ideation, homicidal ideation, and hallucinations, Allergy/Immunology: Negative for hives, rash, and allergies, Endocrine: Negative for neck swelling, polydipsia, polyuria, polyphagia, and marked weight changes, Hematologic/Lymphatic: Negative for swollen nodes, abnormal bleeding, and unusual bruising. 23:49 Neck: Positive for stiffness. 23:49 Respiratory: Positive for cough. 23:49 Back: Positive for decreased range of motion, pain at rest, pain with movement, of the right trapezius, right scapular area and right subscapular area. Exam: 23:49 Constitutional: This is a well developed, well nourished patient who is awake, alert, yandel and in no acute distress. Head/Face: Normocephalic, atraumatic. Eyes: Pupils equal round and reactive to light, extra-ocular motions intact. Lids and lashes normal. Conjunctiva and sclera are non-icteric and not injected. Cornea within normal limits. Periorbital areas with no swelling, redness, or edema. ENT: Nares patent. No nasal discharge, no septal abnormalities noted. Tympanic membranes are normal and external auditory canals are clear. Oropharynx with no redness, swelling, or masses, exudates, or evidence of obstruction, uvula midline. Mucous membranes moist. Neck: Trachea midline, no thyromegaly or masses palpated, and no cervical lymphadenopathy. Supple, full range of motion without nuchal rigidity, or vertebral point tenderness. No Meningismus. Chest/axilla: Normal chest wall appearance and motion. Nontender with no deformity. No lesions are appreciated. Cardiovascular: Regular rate and rhythm with a normal S1 and S2. No gallops, murmurs, or rubs. Normal PMI, no JVD. No pulse deficits. Abdomen/GI: Soft, non-tender, with normal bowel sounds. No distension or tympany. No guarding or rebound. No evidence of tenderness throughout. Back: No spinal tenderness. No costovertebral tenderness. Full range of motion. Female : Normal external genitalia. Skin: Warm, dry with normal turgor. Normal color with no rashes, no lesions, and no evidence of cellulitis. MS/ Extremity: Pulses equal, no cyanosis. Neurovascular intact. Full, normal range of motion. Neuro: Awake and alert, GCS 15, oriented to person, place, time, and situation. Cranial nerves II-XII grossly intact. Motor strength 5/5 in all extremities. Sensory grossly intact. Cerebellar exam normal. Normal gait. Psych: Awake, alert, with orientation to person, place and time. Behavior, mood, and affect are within normal limits. 23:49 Respiratory: the patient does not display signs of respiratory distress, Respirations: normal, Breath sounds: bronchial sounds, decreased breath sounds, that are moderate, are heard in the right posterior upper lobe, right posterior middle lobe and right posterior lower lobe. Vital Signs: 22:08 BP 121 / 80; Pulse 85; Resp 20; Temp 98.9(O); Pulse Ox 96% on R/A; Weight 58.97 kg; bs1 Height 5 ft. 1 in. (154.94 cm); Pain 10/10; 22:59 BP 146 / 71; Pulse 81; Resp 19; Pulse Ox 96% on R/A; lp1 02/01 00:00 BP 145 / 61; Pulse 84; Resp 18; Pulse Ox 96% on R/A; lp1 01:30 BP 146 / 63; Pulse 77; Resp 18; Pulse Ox 96% on R/A; lp1 02:30 BP 158 / 75; Pulse 78; Resp 13; Pulse Ox 98% on R/A; lp1 03:30 BP 149 / 66; Pulse 78; Resp 16; Pulse Ox 98% on R/A; lp1 04:30 BP 145 / 68; Pulse 78; Resp 16; Pulse Ox 97% on R/A; Pain 5/10; lp1 01/31 22:08 Body Mass Index 24.56 (58.97 kg, 154.94 cm) bs1 MDM: 01/31 23:28 Patient medically screened. [facility] 23:52 Data reviewed: vital signs, nurses notes, lab test result(s), EKG, radiologic studies, [facility] CT scan, plain films. 01/31 23:48 Order name: Basic Metabolic Panel; Complete Time: 02:44 [facility] 01/31 23:48 Order name: BNP; Complete Time: 03:36 [facility] 01/31 23:48 Order name: CBC with Diff; Complete Time: 03:36 [facility] 01/31 23:48 Order name: Ckmb; Complete Time: 02:44 [facility] 01/31 23:48 Order name: CPK; Complete Time: 02:44 [facility] 01/31 23:48 Order name: LFT's; Complete Time: 02:44 [facility] 01/31 23:48 Order name: Magnesium; Complete Time: 02:44 [facility] 01/31 23:48 Order name: PT-INR; Complete Time: 02:27 [facility] 01/31 23:48 Order name: Ptt, Activated; Complete Time: 02:27 [facility] 01/31 23:48 Order name: Troponin (emerg Dept Use Only); Complete Time: 02:44 [facility] 01/31 23:48 Order name: XRAY Chest (1 view) [facility] 01/31 23:48 Order name: Lipase; Complete Time: 02:44 [facility] 01/31 23:48 Order name: CT Head C Spine [facility] 02/01 02:20 Order name: Manual Differential; Complete Time: 03:36 EDMS 01/31 23:48 Order name: EKG; Complete Time: 23:48 [facility] 01/31 23:48 Order name: Cardiac monitoring; Complete Time: 00:09 [facility] 01/31 23:48 Order name: EKG - Nurse/Tech; Complete Time: 02:25 [facility] 01/31 23:48 Order name: IV Saline Lock; Complete Time: 01:49 [facility] 01/31 23:48 Order name: Labs collected and sent; Complete Time: 01:49 [facility] 01/31 23:48 Order name: O2 Per Protocol; Complete Time: 00:09 [facility] 01/31 23:48 Order name: O2 Sat Monitoring; Complete Time: 00:10 yandel Administered Medications: 02/01 00:51 Not Given (Patient Refused): NS 0.9% 1000 ml IV at 75 ml/hr continuous fc 00:51 Not Given (Patient Refused): fentaNYL (PF) 25 mcg IVP once fc 00:51 Not Given (Patient Refused): fentaNYL (PF) 25 mcg IVP once fc 00:51 Not Given (Patient Refused): Zofran 4 mg IVP once; over 2 minutes fc 01:07 Drug: Phenergan 12.5 mg Route: IM; Site: right gluteus; ak1 03:52 Follow up: Response: No adverse reaction; Marked relief of symptoms lp1 01:07 Drug: morphine 5 mg Route: IM; Site: right gluteus; ak1 03:53 Follow up: Response: Pain is decreased lp1 Disposition: 02/01/18 04:50 Patient has left against medical advice. Impression: Fracture of fourth cervical vertebra - pathologic , Anemia, unspecified, Bandemia, Type 2 diabetes mellitus, Dyspnea - lung cancer. right. - Patients states they are going to Home. - Condition is Serious. Follow up: Private Physician; When: Upon discharge from the Emergency Department; Reason: Recheck today's complaints, Continuance of care, Re-evaluation by your physician. - Problem is new. - Symptoms are unchanged. Signatures: Dispatcher [employer] EDMS Beto Correia MD MD cha Chretien, Felicia, RN RN Jenna Farrar RN RN lp1 Josefa Malone RN RN ak1 Adwoa Andrade, RN RN bs1 Corrections: (The following items were deleted from the chart) 04:52 04:50 02/01/2018 04:50 Patients has left against medical advice. Impression: Fracture lp1 of fourth cervical vertebra - pathologic ; Anemia, unspecified; Bandemia; Type 2 diabetes mellitus; Dyspnea - lung cancer. right. Patient states they are going to Home. Condition is Serious. Follow up: Private Physician; When: Upon discharge from the Emergency Department; Reason: Recheck today's complaints, Continuance of care, Re-evaluation by your physician. Problem is new. Symptoms are unchanged. yandel
[2018-02-01 04:57] VITALS: TEMP 98.9
[2018-02-01 05:05] VITALS: BP 145/68; O2SAT 97
--- NOTE | 2018-02-01 06:38 | EKG ---
Test Date: 2018-02-01 Test Time: 02:17:37 Patent Paralegal: NITA MEASUREMENT RESULTS: Intervals: Rate: 80 MD: 140 QRSD: 72 QT: 378 QTc: 435 [place]: P: 68 MD: 140 QRS: 109 T: -8 INTERPRETIVE STATEMENTS: Normal sinus rhythm Rightward axis Anterior infarct, age undetermined T wave abnormality, consider inferior ischemia Abnormal ECG Compared to ECG 11/20/2017 00:33:48 Right-axis deviation now present T-wave abnormality now present Possible ischemia now present Myocardial infarct finding still present Electronically Signed On 02-01-18 06:38:19 CDT by Hiren Lance
--- NOTE | 2018-02-01 08:29 | RAD REPORT ---
EXAM DESCRIPTION: CT - CTHCSPWOC - 02/01/2018 5:37 am CLINICAL HISTORY: History of lung carcinoma, head and neck injury and pain. COMPARISON: None. TECHNIQUE: Axial 5 mm thick images of the head were obtained. Axial 2 mm thick images of the cervical spine were obtained with sagittal and coronal reconstruction images generated and reviewed. All CT scans are performed using dose optimization technique as appropriate and may include automated exposure control or mA/KV adjustment according to patient size. FINDINGS: CT HEAD WITHOUT CONTRAST: No acute hemorrhage, hydrocephalus or extra-axial collection is identified.Mild generalized brain atr ophy is present with mild periventricular and deep white matter chronic microvascular ischemic change s.No areas of brain edema or midline shift. The paranasal sinuses appear clear.Mastoid air cells are underpneumatized.The calvarium is intact. CT CERVICAL SPINE WITHOUT CONTRAST: Near complete collapse of the C4 vertebral body with posterior retropulsion noted. Central canal is n arrowed to 8 mm. Underlying metastatic disease is suspected with pathologic fracture.MRI would be ind icated for further assessment.Prominent degenerative change with endplate osteophyte at C5-6 and C6-7 . IMPRESSION: No acute intracranial finding. High-grade compression deformity of C4 vertebral body with posterior retropulsion likely is pathologi c in etiology, with underline metastatic disease likely. MR imaging of the cervical spine without wit h contrast is recommended for further assessment. A preliminary written report was provided at the time of the study, and the report was reviewed prior to final dictation.
--- NOTE | 2018-02-01 08:47 | RAD REPORT ---
EXAM DESCRIPTION: RAD - Chest Single View - 02/01/2018 12:22 am CLINICAL HISTORY: Lung carcinoma COMPARISON: 01/06/2018 FINDINGS: Portable technique limits examination quality. Large mass in the inferior right lung appears essentially stable since comparative study. Left lung i s grossly clear. The heart is normal in size. No displaced fractures.Left-sided venous catheter tip i n the SVC.
== END 2018-02-01 04:52 | disposition left against medical advice (07) ==
LOC: ER 22:02
DX: S12.390A Other displaced fracture of fourth cervical vertebra, initial encounter for closed fracture (principal); D50.9 Iron deficiency anemia, unspecified; D72.825 Bandemia; E11.9 Type 2 diabetes mellitus without complications; R06.00 Dyspnea, unspecified; I12.9 Hypertensive chronic kidney disease with stage 1 through stage 4 chronic kidney disease, or unspecified chronic kidney disease; E11.22 Type 2 diabetes mellitus with diabetic chronic kidney disease; N18.9 Chronic kidney disease, unspecified; I25.2 Old myocardial infarction; Z85.118 Personal history of other malignant neoplasm of bronchus and lung; Z79.4 Long term (current) use of insulin; Z79.82 Long term (current) use of aspirin
CPT/HCPCS: 36415; 70450; 71045; 72125; 80048; 80076; 82550; 82553; 83690; 83735; 83880; 84484; 85025; 85610; 85730; 93005; 96372; 99284; J2550

== ENCOUNTER 2018-02-19 11:27 | Emergency (ER) | payer OTHER ==
--- OUTSIDE RECORDS SUMMARY | 2018-02-19 11:30 | XMS REPORT ---
:1950 Author Organization [employer] Care Team Providers Name Role Phone Melida Perez Provider Role Unavailable Allergies, Adverse Reactions, Alerts Substance Reaction Event Type N.K.D.A. 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 Active Assessment [...] Dosage System Date Date Ventolin HFA ND 09911723158 90 MCG/ACT Active 2 puffs as Inhalation every needed 6 hrs Symbicort ND 28821190314 160-4.5 MCG/ACT Active 2 puffs Inhalation Twice a day Levemir ND 82381483216 100 UNIT/ML Active not FlexTouch Subcutaneous defined Spiriva ND 22329982628 2.5 MCG/ACT Active 2 puffs Respimat Inhalation Once a day Zofran ND 95623567611 4 MG Orally Active 1 tablet twice a day Ferrous ND 00141689100 325 (65 Fe) MG Active 1 tablet Sulfate Orally twice a day Metoprolol [facility] 24623732929 50 MG Orally Active 1 tablet Tartrate Twice a day with food NovoLog [facility] 20030072217 100 UNIT/ML Active not Flexpen Subcutaneous defined Aspir-81 [facility] 96690385223 81 MG Orally Active 1 tablet Once a day Lipitor [facility] 75040001249 40 MG Active TAKE 1 TABLET BY MOUTH EVERY DAY Results No Known Results Summary Purpose [employer] Submission
--- OUTSIDE RECORDS SUMMARY | 2018-02-19 11:30 | XMS REPORT ---
:1950 Author Organization [employer] Care Team Providers Name Role Phone Perez, Melida Provider Role Unavailable Allergies, Adverse Reactions, Alerts Substance Reaction Event Type N.K.D.A. Info Not Available Non Drug Allergy Problems Problem Type Condition Code Onset Dates Condition Status Assessment Hyponatremia E87.1 Active Assessment Unsteady gait R26.81 Active Assessment care home current use of insulin Z79.4 Active Assessment [...] Problem Depression with anxiety F41.8 Active Problem care home current use of insulin Z79.4 Active Assessment [...] End Status Dosage System Date Date Lyrica [facility] 33716359335 75 MG Orally December Active 1 capsule 1 Twice a day 2017 to 3 hours before bedtime in the evening Mirtazapine [facility] 27976877233 15 MG Orally December Active 1 tablet on Once a day 2017 the tongue and allow to dissolve at bedtime Metoprolol ND 18925763861 50 MG Orally Active 1 tablet Tartrate Twice a day with food Spiriva ND 38882682291 2.5 MCG/ACT May 13, Active 2 puffs Respimat Inhalation Once 2017 a day Levemir ND 41522774346 100 UNIT/ML Active 2 FlexTouch Subcutaneous once a day Ventolin HFA ND 26322442981 90 MCG/ACT Active 2 puffs as Inhalation needed every 6 hrs Aspir-81 [facility] 04177182158 81 MG Orally Active 1 tablet Once a day NovoLog ND 86830418438 100 UNIT/ML Inactive sliding Flexpen Subcutaneous scale three times a day Symbicort ND 43579703666 160-4.5 MCG/ACT May 13, Active 2 puffs Inhalation 2017 Twice a day Ferrous [facility] 45209646078 325 (65 Fe) MG Active 1 tablet Sulfate Orally twice a day Zofran [facility] 97711163322 4 MG Orally Active 1 tablet twice a day Mirtazapine [facility] 70705263538 7.5 MG Orally December Active 2 tablets Once a day 2017 at bedtime Lipitor [facility] 92586486687 40 MG Active TAKE 1 TABLET BY MOUTH EVERY DAY Results No Known Results Summary Purpose [employer] Submission
--- OUTSIDE RECORDS SUMMARY | 2018-02-19 11:30 | XMS REPORT ---
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
[2018-02-19] MEDS ORDERED: MORPHINE 4 MG/ML SYR ONE (12:53)
[2018-02-19] MEDS ORDERED: ONDANSETRON HCL 40 MG/20 ML VIAL ONE (12:53)
[2018-02-19] MEDS ORDERED: NA CHLORIDE 0.9% 500 ML ONE (12:53)
[2018-02-19 13:15] LABS: Absolute Lymphocytes (CBC) 0.4 K/uL (0.7-4.9); Absolute Monocytes 0.8 K/uL (0.1-1.3); Absolute Neutrophil 8.7 K/uL (1.8-8.0); Basophils % 0.6 % (0-1.3); Eosinophils % 0.3 % (0-4.4); Hematocrit 36.6 % (36.0-45.0); Lymphocytes % 4.4 % (15.3-44.8); MCH 27.2 pg (27.0-35.0); MCV 83.8 fL (80-100); MPV 7.2 fL (7.6-11.3); Monocytes % 7.8 % (3.3-12.3); RBC Red Blood Cell Count 4.36 M/uL (3.86-4.86)
[2018-02-19 13:51] LABS: Blood Morphology Comment NOT SEEN (NOT SEEN); Platelet Estimate ADEQ; Urine White Blood Cell Casts OK
--- NOTE | 2018-02-19 16:09 | ER ---
Nurse's Notes [facility] Name: Martina Chapa Age: 67 yrs Sex: Female : 1950 Arrival Date: 02/19/2018 Time: 11:30 Bed 16 Private MD: Melida Perez Diagnosis: Lung cancer with mets, chronic associated pain, weakness Presentation: 02/19 11:36 Presenting complaint: Patient states: Patient's daughter reports patient has been ae1 feeling weak for "a few days" Patient is on chemotherapy to treat lung cancer. Last treatment was the previous Wednesday. Patient reports pain to her right hip. Transition of care: patient was not received from another setting of care. 11:36 Method Of Arrival: Wheelchair ae1 11:45 Acuity: NATALYA 3 ae1 16:35 Onset of symptoms is unknown. Risk Assessment: Do you want to hurt yourself or someone mb3 else? Patient reports no desire to harm self or others. Initial Sepsis Screen: Does the patient meet any 2 criteria? No. Patient's initial sepsis screen is negative. Does the patient have a suspected source of infection? No. Patient's initial sepsis screen is negative. Care prior to arrival: None. Triage Assessment: 11:41 General: Appears uncomfortable, slender, Behavior is cooperative, agitated, anxious. ae1 Pain: Complains of pain in head and back of head. Neuro: Reports Generalized weakness. . 11:42 The onset of the patients symptoms was February 17, 2018 at 08:00. ae1 Historical: - Allergies: 11:44 NKDA; ae1 - Home Meds: 11:44 aspirin 81 mg Oral TbEC once daily [Active]; atorvastatin 40 mg Oral tab 1 tab once ae1 daily [Active]; ferrous sulfate 325 mg (65 mg iron) Oral TbEC 325 mg twice a day [Active]; Levemir 2 units in the morning. subcutaneous [Active]; Lyrica 50 mg Oral daily [Active]; metoprolol tartrate 50 mg Oral tab 1 tab 2 times per day [Active]; [place] 5-325 mg Oral tab 1 tab every 6 hours [Active]; - PMHx: 11:44 anemia-iron deficiency; CAD; chemotherapy; chronic renal disease; COPD; Diabetes - ae1 IDDM; Hearing Loss; Hypertension; Lung Cancer; Myocardial infarction; neuropathy; radiation; - PSHx: 11:44 cancer on spine; cancer in right hip; ae1 - Immunization history:: Adult Immunizations not up to date, Flu vaccine is not up to date. - Social history:: Smoking status: Patient uses tobacco products, denies chronic smoking, but will smoke occasionally. - Ebola Screening: : Patient negative for fever greater than or equal to 101.5 degrees Fahrenheit, and additional compatible Ebola Virus Disease symptoms Patient denies exposure to infectious person. Screenin:24 Abuse screen: Denies threats or abuse. Nutritional screening: on chemo and radiation, mb3 family states not eating. . Tuberculosis screening: No symptoms or risk factors identified. Fall Risk No fall in past 12 months (0 pts). Secondary diagnosis (15 points) IV access (20 points). Ambulatory Aid- None/Bed Rest/Nurse Assist (0 pts). Gait- Weak (10 pts.). Mental Status- Oriented to own ability (0 pts). Total Charles Fall Scale indicates High Risk Score (45 or more points). Fall prevention measures have been instituted. Side Rails Up X 2 Placed Close to Nursing Station Frequent Obs/Assessments Occuring Family Present and informed to notify staff if the need to leave the bedside. Assessment: 12:20 General: Appears uncomfortable, ill, slender, Behavior is cooperative, anxious. Pain: mb3 Complains of pain in States having pain all over, main area is back of neck, radiating down back and into legs. Also having severe pain to hips. Neuro: Level of Consciousness is awake, alert, obeys commands, Oriented to person, place, time, situation, Reports weakness generalized, had chemo on Wednesday. Cardiovascular: Denies chest pain, Heart tones present Capillary refill < 3 seconds Pulses are palpable in right radial artery, right dorsalis pedis artery, left radial artery and left dorsalis pedis artery. Respiratory: Airway is patent Respiratory effort is even, unlabored, Respiratory pattern is regular, symmetrical, Breath sounds are clear bilaterally. GI: Abdomen is flat, Bowel sounds hypoactive in right upper quadrant, left upper quadrant, right lower quadrant and left lower quadrant. : No signs and/or symptoms were reported regarding the genitourinary system. EENT: No signs and/or symptoms were reported regarding the EENT system. Musculoskeletal: Reports weakness in all over. 13:50 Reassessment: Patient appears in no apparent distress at this time. Patient and/or mb3 family updated on plan of care and expected duration. Pain level reassessed. Patient is alert, oriented x 3, equal unlabored respirations, skin warm/dry/pink. Patient states symptoms have improved. 15:13 Reassessment: No changes from previously documented assessment. Patient and/or family mb3 updated on plan of care and expected duration. Pain level reassessed. Patient is alert, oriented x 3, equal unlabored respirations, skin warm/dry/pink. Vital Signs: 11:39 BP 122 / 74; Pulse 122; Resp 20; Temp 97.6(O); Pulse Ox 97% on R/A; Weight 58.97 kg (R);ae1 13:51 BP 131 / 85; Pulse 96; Resp 18; Pulse Ox 100% on 1 lpm NC; mb3 15:12 BP 142 / 76; Pulse 94; Resp 18; Pulse Ox 99% on R/A; mb3 ED Course: 11:30 Patient arrived in ED. mr 11:30 Melida Perez MD is Private Physician. mr 11:45 Triage completed. ae1 12:16 Alexandro León MD is Attending Physician. kdr 12:19 Lonnie Peralta RN is Primary Nurse. mb3 13:16 Chem 7 Sent. mh5 13:16 CBC with Diff Sent. mh5 15:49 Urine collected: straight cath specimen, cloudy. Straight cath inserted, using sterile mh5 technique, 16 Fr. Specimen obtained. 16:07 Melida Perez MD is Referral Physician. kdr 16:33 No provider procedures requiring assistance completed. IV discontinued, intact, mb3 bleeding controlled, No redness/swelling at site. Pressure dressing applied. 16:35 Arm band placed on right wrist. mb3 16:35 Patient has correct armband on for positive identification. mb3 Administered Medications: 13:05 Drug: morphine 4 mg Route: IVP; Site: right antecubital; mb3 13:47 Follow up: Response: No adverse reaction; Pain is decreased mb3 16:33 Follow up: Response: No adverse reaction mb3 13:05 Drug: Zofran 4 mg Route: IVP; Site: right antecubital; mb3 13:48 Follow up: Response: No adverse reaction mb3 16:32 Follow up: Response: No adverse reaction mb3 13:05 Drug: NS 0.9% 500 ml Volume: 500 ml; Route: IV; Rate: 1 bolus; Site: right antecubital; mb3 13:49 Follow up: Response: No adverse reaction; IV Status: Completed infusion; IV Intake: mb3 500ml 16:32 Follow up: Response: No adverse reaction; IV Status: Completed infusion; IV Intake: mb3 500ml Point of Care Testing: Blood Glucose: 11:39 Blood Glucose: 122 mg/dL; ae1 Ranges: Intake: 13:49 IV: 500ml; Total: 500ml. mb3 16:32 IV: 500ml; Total: 1000ml. mb3 Outcome: 16:08 Discharge ordered by MD. kdr 16:34 Discharged to home ambulatory, via wheelchair, with family. mb3 16:34 Condition: stable 16:34 Discharge instructions given to patient, family, Instructed on discharge instructions, follow up and referral plans. Demonstrated understanding of instructions, follow-up care. 16:36 Patient left the ED. mb3 18:08 Instructed on attempted to call patient at home to advise her to either continue taking iw currently prescribed steroids at home or if she is not currently prescribed steroids to call her doctor, Dr. Olguin to have prescription called in Signatures: Alexandro León MD MD kdr Rivera, Maria mr Williams, Irene, RN RN iw Elliott, Andrea, RN RN kandy1 Sarah Stone Mark, RN RN mb3
--- NOTE | 2018-02-19 16:09 | EDPHYS ---
Physician Documentation [facility] Name: Martina Chapa Age: 67 yrs Sex: Female : 1950 Arrival Date: 02/19/2018 Time: 11:30 Bed 16 Private MD: Melida Perez ED Physician Alexandro León HPI: 02/19 13:07 This 67 yrs old Female presents to ER via Wheelchair with complaints of kdr Weakness. 13:08 The patient has become increasing weak the last few days. This has happened before and kdr is often related to either her chemo/radiation or she needs a blood trasnfusion. Onset: The symptoms/episode began/occurred gradually, 3 day(s) ago. Severity of symptoms: At their worst the symptoms were moderate in the emergency department the symptoms are unchanged. The patient has experienced similar episodes in the past, multiple times. The patient has been recently seen by a physician: the patient's primary care provider, For chemo/radiation. Historical: - Allergies: 11:44 NKDA; ae1 - Home Meds: 11:44 aspirin 81 mg Oral TbEC once daily [Active]; atorvastatin 40 mg Oral tab 1 tab once ae1 daily [Active]; ferrous sulfate 325 mg (65 mg iron) Oral TbEC 325 mg twice a day [Active]; Levemir 2 units in the morning. subcutaneous [Active]; Lyrica 50 mg Oral daily [Active]; metoprolol tartrate 50 mg Oral tab 1 tab 2 times per day [Active]; [place] 5-325 mg Oral tab 1 tab every 6 hours [Active]; - PMHx: 11:44 anemia-iron deficiency; CAD; chemotherapy; chronic renal disease; COPD; Diabetes - ae1 IDDM; Hearing Loss; Hypertension; Lung Cancer; Myocardial infarction; neuropathy; radiation; - PSHx: 11:44 cancer on spine; cancer in right hip; ae1 - Immunization history:: Adult Immunizations not up to date, Flu vaccine is not up to date. - Social history:: Smoking status: Patient uses tobacco products, denies chronic smoking, but will smoke occasionally. - Ebola Screening: : Patient negative for fever greater than or equal to 101.5 degrees Fahrenheit, and additional compatible Ebola Virus Disease symptoms Patient denies exposure to infectious person. ROS: 13:08 Constitutional: Negative for fever, chills, and weight loss, Eyes: Negative for injury, kdr pain, redness, and discharge, Cardiovascular: Negative for chest pain, palpitations, and edema, Respiratory: Negative for shortness of breath, cough, wheezing, and pleuritic chest pain, Abdomen/GI: Negative for abdominal pain, nausea, vomiting, diarrhea, and constipation, Back: Negative for injury and pain, MS/Extremity: Negative for injury and deformity, Skin: Negative for injury, rash, and discoloration except for stage 1 decubitus ulcer on her sacrum Neuro: Negative for headache, weakness, numbness, tingling, and seizure activity. Psych: Negative for depression, anxiety, suicide ideation, homicidal ideation, and hallucinations, Allergy/Immunology: Negative for hives, rash, and allergies, Endocrine: Negative for neck swelling, polydipsia, polyuria, polyphagia, and marked weight changes, Hematologic/Lymphatic: Negative for swollen nodes, abnormal bleeding, and unusual bruising. 13:08 Neck: Positive for pain with movement, pain at rest, rash, stiffness, swelling, swollen nodes, tenderness, bony tenderness. Exam: 13:08 Constitutional: This is a well developed, well nourished patient who is awake but kdr somewhat weak and sleepy with no other acute disease or distress. Head/Face: Normocephalic, atraumatic. Chest/axilla: Normal chest wall appearance and motion. Nontender with no deformity. No lesions are appreciated. Cardiovascular: Regular rate and rhythm with a normal S1 and S2. No gallops, murmurs, or rubs. Normal PMI, no JVD. No pulse deficits. Respiratory: Lungs have equal breath sounds bilaterally, clear to auscultation and percussion. No rales, rhonchi or wheezes noted. No increased work of breathing, no retractions or nasal flaring. Abdomen/GI: Soft, non-tender, with normal bowel sounds. No distension or tympany. No guarding or rebound. No evidence of tenderness throughout. Back: No spinal tenderness. No costovertebral tenderness. Full range of motion. Skin: Warm, dry with normal turgor. Normal color with no rashes, no lesions, and no evidence of cellulitis. MS/ Extremity: Pulses equal, no cyanosis. Neurovascular intact. Full, normal range of motion. Neuro: Awake and alert, GCS 15, oriented to person, place, time, and situation. Cranial nerves II-XII grossly intact. Motor strength 5/5 in all extremities. Sensory grossly intact. Cerebellar exam normal. Normal gait. Psych: Awake, alert, with orientation to person, place and time. Behavior, mood, and affect are within normal limits. 13:08 Neck: External neck: erythema, that is mild, of the right sternocleidomastoid and right side of neck, No change in the pain today. Vital Signs: 11:39 BP 122 / 74; Pulse 122; Resp 20; Temp 97.6(O); Pulse Ox 97% on R/A; Weight 58.97 kg (R);ae1 13:51 BP 131 / 85; Pulse 96; Resp 18; Pulse Ox 100% on 1 lpm NC; mb3 15:12 BP 142 / 76; Pulse 94; Resp 18; Pulse Ox 99% on R/A; mb3 MDM: 15:31 ED course: have now called the answering service twice and left messages without kdr response. 16:08 Patient medically screened. kdr 17:57 Data reviewed: vital signs, nurses notes, lab test result(s). Counseling: I had a kdr detailed discussion with the patient and/or guardian regarding: the historical points, exam findings, and any diagnostic results supporting the discharge/admit diagnosis, lab results, the need for outpatient follow up. ED course: Spoke with Dr. Olguin. He requested that we make certain that the patient was taking steroids. If she was not on steroids, to call him on his cell phone and he would call in an Rx for the patient. This was given to the charge nurse to effect. 02/19 11:41 Order name: Glucose, Ancillary Testing; Complete Time: 12:46 EDMS 02/19 12:46 Order name: CBC with Diff; Complete Time: 14:21 kdr 02/19 12:46 Order name: Chem 7; Complete Time: 14:21 kdr 02/19 13:18 Order name: CBC Smear Scan; Complete Time: 14:21 EDMS 02/19 12:46 Order name: Urine Dipstick-Ancillary (obtain specimen); Complete Time: 16:33 kdr Administered Medications: 13:05 Drug: morphine 4 mg Route: IVP; Site: right antecubital; mb3 13:47 Follow up: Response: No adverse reaction; Pain is decreased mb3 16:33 Follow up: Response: No adverse reaction mb3 13:05 Drug: Zofran 4 mg Route: IVP; Site: right antecubital; mb3 13:48 Follow up: Response: No adverse reaction mb3 16:32 Follow up: Response: No adverse reaction mb3 13:05 Drug: NS 0.9% 500 ml Volume: 500 ml; Route: IV; Rate: 1 bolus; Site: right antecubital; mb3 13:49 Follow up: Response: No adverse reaction; IV Status: Completed infusion; IV Intake: mb3 500ml 16:32 Follow up: Response: No adverse reaction; IV Status: Completed infusion; IV Intake: mb3 500ml Point of Care Testing: Blood Glucose: 11:39 Blood Glucose: 122 mg/dL; ae1 Ranges: Critical Glucose Levels:Adult <50 mg/dl or >400 mg/dl <40 mg/dl or >180 mg/dl Disposition: 02/19/18 16:08 Discharged to Home. Impression: Lung cancer with mets, chronic associated pain, weakness. - Condition is Stable. - Discharge Instructions: Chronic Pain, Weakness, [id number]. - Medication Reconciliation Form, Thank You Letter, Prescription Opioid Use form. - Follow up: Melida Perez MD; When: 2 - 3 days; Reason: If symptoms return, Further diagnostic work-up, Recheck today's complaints, Continuance of care, Re-evaluation by your physician. - Problem is an ongoing problem. - Symptoms have improved. - Notes: Take your pain medication as directed on the bottles Signatures: Dispatcher [employer] EDND Alexandro León MD MD kdr Indra Bliss RN RN ae1 Lonnie Peralta RN RN mb3 Corrections: (The following items were deleted from the chart) 16:36 16:08 02/19/2018 16:08 Discharged to Home. Impression: Lung cancer with mets, chronic mb3 associated pain, weakness. Condition is Stable. Forms are Medication Reconciliation Form, Thank You Letter, Antibiotic Education, Prescription Opioid Use. Follow up: Melida Perez; When: 2 - 3 days; Reason: If symptoms return, Further diagnostic work-up, Recheck today's complaints, Continuance of care, Re-evaluation by your physician. Problem is an ongoing problem. Symptoms have improved. kdr
[2018-02-19 16:45] VITALS: TEMP 97.6
[2018-02-19 16:47] VITALS: BP 142/76; O2SAT 99
== END 2018-02-19 16:36 | disposition home or self-care (01) ==
LOC: ER 11:27
DX: G89.3 Neoplasm related pain (acute) (chronic) (principal); C34.90 Malignant neoplasm of unspecified part of unspecified bronchus or lung; I12.9 Hypertensive chronic kidney disease with stage 1 through stage 4 chronic kidney disease, or unspecified chronic kidney disease; E11.22 Type 2 diabetes mellitus with diabetic chronic kidney disease; N18.9 Chronic kidney disease, unspecified; J44.9 Chronic obstructive pulmonary disease, unspecified; Z72.0 Tobacco use; Z85.830 Personal history of malignant neoplasm of bone; Z79.82 Long term (current) use of aspirin; Z79.4 Long term (current) use of insulin
CPT/HCPCS: 36415; 51702; 80048; 82962; 85025; 96361; 96374; 96375; 99283; J2405

== ENCOUNTER 2018-03-02 09:41 | Emergency (ER) | payer OTHER ==
--- OUTSIDE RECORDS SUMMARY | 2018-03-02 09:43 | XMS REPORT ---
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 Assessment [...] Dosage System Date Date Ventolin HFA ND 70239859478 90 MCG/ACT Active 2 puffs as Inhalation every needed 6 hrs Symbicort ND 24665449618 160-4.5 MCG/ACT Active 2 puffs Inhalation Twice a day Levemir ND 90470744023 100 UNIT/ML Active not FlexTouch Subcutaneous defined Spiriva ND 17527426951 2.5 MCG/ACT Active 2 puffs Respimat Inhalation Once a day Zofran ND 08136062248 4 MG Orally Active 1 tablet twice a day Ferrous ND 03131826603 325 (65 Fe) MG Active 1 tablet Sulfate Orally twice a day Metoprolol [facility] 86654011013 50 MG Orally Active 1 tablet Tartrate Twice a day with food NovoLog [facility] 78100481277 100 UNIT/ML Active not Flexpen Subcutaneous defined Aspir-81 [facility] 24735416569 81 MG Orally Active 1 tablet Once a day Lipitor [facility] 20961910768 40 MG Active TAKE 1 TABLET BY MOUTH EVERY DAY Results No Known Results Summary Purpose eClinicalWorks Submission
--- OUTSIDE RECORDS SUMMARY | 2018-03-02 09:43 | XMS REPORT ---
:1950 Author Organization e[employer] Care Team Providers Name Role Phone Perez, Melida Provider Role Unavailable Allergies, Adverse Reactions, Alerts Substance Reaction Event Type N.K.D.A. Info Not Available Non Drug Allergy Problems Problem Type Condition Code Onset Dates Condition Status Assessment Hyponatremia E87.1 Active Assessment Unsteady gait R26.81 Active Assessment prison current use of insulin Z79.4 Active Assessment [...] Problem Depression with anxiety F41.8 Active Problem prison current use of insulin Z79.4 Active Assessment [...] End Status Dosage System Date Date Lyrica [facility] 16152314980 75 MG Orally December Active 1 capsule 1 Twice a day 2017 to 3 hours before bedtime in the evening Mirtazapine [facility] 27554087795 15 MG Orally December Active 1 tablet on Once a day 2017 the tongue and allow to dissolve at bedtime Metoprolol ND 62936737496 50 MG Orally Active 1 tablet Tartrate Twice a day with food Spiriva ND 61545198612 2.5 MCG/ACT May 13, Active 2 puffs Respimat Inhalation Once 2017 a day Levemir ND 60673935568 100 UNIT/ML Active 2 FlexTouch Subcutaneous once a day Ventolin HFA ND 91747224537 90 MCG/ACT Active 2 puffs as Inhalation needed every 6 hrs Aspir-81 [facility] 88013086582 81 MG Orally Active 1 tablet Once a day NovoLog ND 77940922977 100 UNIT/ML Inactive sliding Flexpen Subcutaneous scale three times a day Symbicort ND 85479131207 160-4.5 MCG/ACT May 13, Active 2 puffs Inhalation 2017 Twice a day Ferrous [facility] 29473362160 325 (65 Fe) MG Active 1 tablet Sulfate Orally twice a day Zofran [facility] 54032539436 4 MG Orally Active 1 tablet twice a day Mirtazapine [facility] 46419475503 7.5 MG Orally December Active 2 tablets Once a day 2017 at bedtime Lipitor [facility] 49472650157 40 MG Active TAKE 1 TABLET BY MOUTH EVERY DAY Results No Known Results Summary Purpose eClinicalWorks Submission
--- OUTSIDE RECORDS SUMMARY | 2018-03-02 09:43 | XMS REPORT ---
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
[2018-03-02] MEDS ORDERED: HYDROCODONE/APAP 10/325 TAB ONE ×2 (12:39→12:48)
--- NOTE | 2018-03-02 13:45 | EDPHYS ---
Physician Documentation [facility] Name: Martina Chpaa Age: 67 yrs Sex: Female : 1950 Arrival Date: 03/02/2018 Time: 09:42 Bed 8 Private MD: Melida Perez ED Physician Kenney Gomes HPI: 03/02 12:56 This 67 yrs old Female presents to ER via Wheelchair with complaints of Skin rn Sore(s). 12:56 Has had skin ulceration, decubitus, for approx 2 weeks, has lung cancer with mets to pattern clerk and hip that makes it difficult to walk, stays in bed most of day, no fever, sent here by pcp for wound care consultation, no acute change or new complaints. . Onset: The symptoms/episode began/occurred 2 week(s) ago. Severity of symptoms: At their worst the symptoms were mild in the emergency department the symptoms are unchanged. The patient has not experienced similar symptoms in the past. The patient has been recently seen by a physician:. Historical: - Allergies: 10:09 NKDA; ss - Home Meds: 10:09 aspirin 81 mg Oral TbEC once daily [Active]; atorvastatin 40 mg Oral tab 1 tab once ss daily [Active]; ferrous sulfate 325 mg (65 mg iron) Oral TbEC 325 mg twice a day [Active]; Levemir 2 units in the morning. subcutaneous [Active]; Lyrica 50 mg Oral daily [Active]; metoprolol tartrate 50 mg Oral tab 1 tab 2 times per day [Active]; [place] 5-325 mg Oral tab 1 tab every 6 hours [Active]; - PMHx: 10:09 anemia-iron deficiency; CAD; chemotherapy; chronic renal disease; COPD; Diabetes - ss IDDM; Hearing Loss; Hypertension; Lung Cancer; Myocardial infarction; neuropathy; radiation; - PSHx: 10:09 cancer on spine; cancer in right hip; ss - Immunization history:: Adult Immunizations. - Social history:: Smoking status: unknown. - Ebola Screening: : Patient negative for fever greater than or equal to 101.5 degrees Fahrenheit, and additional compatible Ebola Virus Disease symptoms Patient denies exposure to infectious person Patient denies travel to an Ebola-affected area in the 21 days before illness onset No symptoms or risks identified at this time. - Family history:: not pertinent. - Hospitalizations: : No recent hospitalization is reported. ROS: 12:56 Constitutional: Negative for fever, chills, and weight loss, Eyes: Negative for injury, rn pain, redness, and discharge, Cardiovascular: Negative for chest pain, palpitations, and edema, Respiratory: Negative for wheezing, and pleuritic chest pain, Abdomen/GI: Negative for abdominal pain, nausea, vomiting, diarrhea, and constipation, Back: Negative for injury and pain, MS/Extremity: Negative for injury and deformity, Skin: + decubitus ulcers Neuro: Negative for headache, numbness, tingling, and seizure. Exam: 12:56 Constitutional: This is a well developed, well nourished patient who is awake, alert, rn appears in pain but family assures me it is normal for her Head/Face: Normocephalic, atraumatic. Eyes: Pupils equal round and reactive to light, extra-ocular motions intact. Lids and lashes normal. Conjunctiva and sclera are non-icteric and not injected. Cornea within normal limits. Periorbital areas with no swelling, redness, or edema. Cardiovascular: tachycardic, regular, no murmur Respiratory: Lungs have equal breath sounds bilaterally, clear to auscultation and percussion. No rales, rhonchi or wheezes noted. No increased work of breathing, no retractions or nasal flaring. Abdomen/GI: Soft, non-tender, with normal bowel sounds. No distension or tympany. No guarding or rebound. No evidence of tenderness throughout. Skin: Warm, dry. + very superficial dry skin and sub-centimeter ulcerations lower lumbar region, no purulence or drainage MS/ Extremity: Pulses equal, no cyanosis. Neurovascular intact. Neuro: Awake and alert, GCS 15, oriented to person, place, time, and situation. Cranial nerves II-XII grossly intact. Motor strength 5/5 in all extremities. Sensory grossly intact. Vital Signs: 10:09 BP 117 / 79; Pulse 109; Resp 20; Temp 97.4; Pulse Ox 99% on R/A; Weight 58.06 kg; ss Height 4 ft. 11 in. (149.86 cm); 13:02 BP 156 / 81; Pulse 103; Resp 19; Pulse Ox 98% on R/A; dh3 14:00 BP 145 / 80; Pulse 101; Resp 20; Pulse Ox 99% ; hb 10:09 Body Mass Index 25.85 (58.06 kg, 149.86 cm) MDM: 11:59 Patient medically screened. rn 13:43 Differential Diagnosis. Data reviewed: vital signs, nurses notes, and as a result, I rn will discharge patient. Counseling: I had a detailed discussion with the patient and/or guardian regarding: the historical points, exam findings, and any diagnostic results supporting the discharge/admit diagnosis, the need for outpatient follow up, to return to the emergency department if symptoms worsen or persist or if there are any questions or concerns that arise at home. Special discussion: I discussed with the patient/guardian in detail that at this point there is no indication for admission to the hospital. It is understood, however, that if the symptoms persist or worsen the patient needs to return immediately for re-evaluation. ED course: Consulted wound care, they spoke with patient's family and made recommendations, plan for dc, will see in wound care tomorrow and make orders for wound care with hospice. . 03/02 12:26 Order name: [facility] Administered Medications: 13:45 Drug: [place] 10 mg-325 mg 1 tabs Route: PO; hb 14:11 Follow up: Response: Medication administered at discharge. hb Disposition: 03/02/18 13:45 Discharged to Home. Impression: Decubitus ulcers. - Condition is Stable. - Discharge Instructions: Skin Ulcer. - Medication Reconciliation Form, Thank You Letter, Antibiotic Education, Prescription Opioid Use form. - Follow up: Private Physician; When: As needed; Reason: Recheck today's complaints, Re-evaluation by your physician. - Problem is an ongoing problem. - Symptoms are unchanged. Signatures: Dispatcher [employer] ED[facility] Kenney Gomes MD MD rn Smirch, Shelby, RN RN Tashia Escobar RN RN Corrections: (The following items were deleted from the chart) 14:12 13:45 03/02/2018 13:45 Discharged to Home. Impression: Decubitus ulcers. Condition is hb Stable. Forms are Medication Reconciliation Form, Thank You Letter, Antibiotic Education, Prescription Opioid Use. Follow up: Private Physician; When: As needed; Reason: Recheck today's complaints, Re-evaluation by your physician. Problem is an ongoing problem. Symptoms are unchanged. rn
--- NOTE | 2018-03-02 13:45 | ER ---
Nurse's Notes [facility] Name: Martina Chapa Age: 67 yrs Sex: Female : 1950 Arrival Date: 03/02/2018 Time: 09:42 Bed 8 Private MD: Melida Perez Diagnosis: Decubitus ulcers Presentation: 03/02 10:07 Presenting complaint: Child states: Sacral wound for 2 weeks. Sent to ER by Dr Perez for ss evaluation. Transition of care: patient was not received from another setting of care. Onset of symptoms was February 18, 2018. Care prior to arrival: None. 10:07 Method Of Arrival: Wheelchair ss 10:07 Acuity: NATALYA 3 ss 12:00 Risk Assessment: Do you want to hurt yourself or someone else? Patient reports no hb desire to harm self or others. Initial Sepsis Screen: Does the patient meet any 2 criteria? No. Patient's initial sepsis screen is negative. Does the patient have a suspected source of infection? No. Patient's initial sepsis screen is negative. Triage Assessment: 10:09 General: Appears in no apparent distress. comfortable, Behavior is calm, cooperative, ss appropriate for age. Pain: Complains of pain in buttocks. Neuro: Level of Consciousness is awake, alert, obeys commands, Oriented to person, place, time, situation, Appropriate for age. Respiratory: Airway is patent Respiratory effort is even, unlabored, Respiratory pattern is regular, symmetrical. Derm: Skin is intact, is healthy with good turgor, Skin is pink, warm \T\ dry. normal, Wound noted buttocks. Historical: - Allergies: 10:09 NKDA; ss - Home Meds: 10:09 aspirin 81 mg Oral TbEC once daily [Active]; atorvastatin 40 mg Oral tab 1 tab once ss daily [Active]; ferrous sulfate 325 mg (65 mg iron) Oral TbEC 325 mg twice a day [Active]; Levemir 2 units in the morning. subcutaneous [Active]; Lyrica 50 mg Oral daily [Active]; metoprolol tartrate 50 mg Oral tab 1 tab 2 times per day [Active]; [place] 5-325 mg Oral tab 1 tab every 6 hours [Active]; - PMHx: 10:09 anemia-iron deficiency; CAD; chemotherapy; chronic renal disease; COPD; Diabetes - ss IDDM; Hearing Loss; Hypertension; Lung Cancer; Myocardial infarction; neuropathy; radiation; - PSHx: 10:09 cancer on spine; cancer in right hip; ss - Immunization history:: Adult Immunizations. - Social history:: Smoking status: unknown. - Ebola Screening: : Patient negative for fever greater than or equal to 101.5 degrees Fahrenheit, and additional compatible Ebola Virus Disease symptoms Patient denies exposure to infectious person Patient denies travel to an Ebola-affected area in the 21 days before illness onset No symptoms or risks identified at this time. - Family history:: not pertinent. - Hospitalizations: : No recent hospitalization is reported. Screenin:07 Abuse screen: Denies threats or abuse. Denies injuries from another. Nutritional hb screening: No deficits noted. Tuberculosis screening: No symptoms or risk factors identified. Fall Risk None identified. Assessment: 12:00 General: Appears uncomfortable, Behavior is crying. Pain: Complains of pain in buttocks hb Pain currently is 10 out of 10 on a pain scale. Neuro: Level of Consciousness is awake, alert, obeys commands. Cardiovascular: Patient's skin is warm and dry. Respiratory: Airway is patent Respiratory effort is even, unlabored, Respiratory pattern is regular, symmetrical. GI: No signs and/or symptoms were reported involving the gastrointestinal system. : No signs and/or symptoms were reported regarding the genitourinary system. EENT: No signs and/or symptoms were reported regarding the EENT system. Derm: Wound noted left gluteus noemi and right gluteus noemi. 12:44 Reassessment: awaiting wound healing consult. Daughter remains at bedside, call light ss within reach. 13:06 Reassessment: pt is resting at this time, eyes closed. Respirations remain even and ss unlabored. Pt appears comfortable. 13:20 Reassessment: Wound center personnel at bedside. hb Vital Signs: 10:09 BP 117 / 79; Pulse 109; Resp 20; Temp 97.4; Pulse Ox 99% on R/A; Weight 58.06 kg; ss Height 4 ft. 11 in. (149.86 cm); 13:02 BP 156 / 81; Pulse 103; Resp 19; Pulse Ox 98% on R/A; dh3 14:00 BP 145 / 80; Pulse 101; Resp 20; Pulse Ox 99% ; hb 10:09 Body Mass Index 25.85 (58.06 kg, 149.86 cm) ED Course: 09:42 Patient arrived in ED. sb2 09:42 Melida Perez MD is Private Physician. sb2 10:08 Triage completed. ss 10:09 Arm band placed on left wrist. Patient placed in waiting room, Patient notified of wait ss time. 11:59 Kenney Gomes MD is Attending Physician. rn 12:00 Bed in low position. Call light in reach. Side rails up X 1. Adult w/ patient. Pulse ox hb on. NIBP on. Warm blanket given. 12:11 Judy Ritchie, RN is Primary Nurse. jl7 14:09 No provider procedures requiring assistance completed. Patient did not have IV access hb during this emergency room visit. Administered Medications: 13:45 Drug: [place] 10 mg-325 mg 1 tabs Route: PO; hb 14:11 Follow up: Response: Medication administered at discharge. hb Outcome: 13:45 Discharge ordered by MD. rn 14:09 Discharged to home ambulatory, with family. hb 14:09 Condition: stable 14:09 Discharge instructions given to patient, family, Instructed on discharge instructions, follow up and referral plans. Demonstrated understanding of instructions, follow-up care. 14:12 Patient left the ED. hb Signatures: Kenney Gomes MD MD rn Smirch, Shelby, RN RN Tashia Escobar RN RN Judy Ritchie, NICHOLE RN jl7 Martine Qu[facility] Savita Donaldson sb2
[2018-03-02 14:16] VITALS: TEMP 97.4
[2018-03-02 14:18] VITALS: BP 145/80; O2SAT 99
== END 2018-03-02 14:12 | disposition home or self-care (01) ==
LOC: ER 09:41
DX: L89.109 Pressure ulcer of unspecified part of back, unspecified stage (principal); E11.622 Type 2 diabetes mellitus with other skin ulcer; D64.9 Anemia, unspecified; I25.10 Atherosclerotic heart disease of native coronary artery without angina pectoris; I12.9 Hypertensive chronic kidney disease with stage 1 through stage 4 chronic kidney disease, or unspecified chronic kidney disease; E11.22 Type 2 diabetes mellitus with diabetic chronic kidney disease; N18.9 Chronic kidney disease, unspecified; H91.90 Unspecified hearing loss, unspecified ear; I25.2 Old myocardial infarction; Z85.830 Personal history of malignant neoplasm of bone; Z79.4 Long term (current) use of insulin
CPT/HCPCS: 99283

== ENCOUNTER 2018-03-04 14:31 | Emergency (ER) | payer OTHER ==
--- OUTSIDE RECORDS SUMMARY | 2018-03-04 14:32 | XMS REPORT ---
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
--- OUTSIDE RECORDS SUMMARY | 2018-03-04 14:32 | XMS REPORT ---
[...] Hypotension, unspecified I95.9 Active hypotension type Problem termite treater current use of insulin Z79.4 Active Assessment [...] Dosage System Date Date Ventolin HFA ND 97859081682 90 MCG/ACT Active 2 puffs as Inhalation every needed 6 hrs Symbicort ND 19047406702 160-4.5 MCG/ACT Active 2 puffs Inhalation Twice a day Levemir ND 25555752487 100 UNIT/ML Active not FlexTouch Subcutaneous defined Spiriva ND 01808803095 2.5 MCG/ACT Active 2 puffs Respimat Inhalation Once a day Zofran ND 03400307844 4 MG Orally Active 1 tablet twice a day Ferrous ND 34940908353 325 (65 Fe) MG Active 1 tablet Sulfate Orally twice a day Metoprolol [facility] 13532841872 50 MG Orally Active 1 tablet Tartrate Twice a day with food NovoLog [facility] 75743203294 100 UNIT/ML Active not Flexpen Subcutaneous defined Aspir-81 [facility] 24666941253 81 MG Orally Active 1 tablet Once a day Lipitor [facility] 40080367718 40 MG Active TAKE 1 TABLET BY MOUTH EVERY DAY Results No Known Results Summary Purpose e[employer]Works Submission
--- OUTSIDE RECORDS SUMMARY | 2018-03-04 14:32 | XMS REPORT ---
:1950 Author Organization [employer] Care Team Providers Name Role Phone Perez, Melida Provider Role Unavailable Allergies, Adverse Reactions, Alerts Substance Reaction Event Type N.K.D.A. Info Not Available Non Drug Allergy Problems Problem Type Condition Code Onset Dates Condition Status Assessment Hyponatremia E87.1 Active Assessment Unsteady gait R26.81 Active Assessment shelter current use of insulin Z79.4 Active Assessment [...] Problem Depression with anxiety F41.8 Active Problem shelter current use of insulin Z79.4 Active Assessment [...] Status Dosage System Date Date Lyrica [facility] [place] 20333900605 75 MG Orally December Active 1 capsule 1 Twice a day 2017 to 3 hours before bedtime in the evening Mirtazapine [facility] [place] 28887424968 15 MG Orally December Active 1 tablet on Once a day 2017 the tongue and allow to dissolve at bedtime Metoprolol ND 85299096297 50 MG Orally Active 1 tablet Tartrate Twice a day with food Spiriva ND 10643592408 2.5 MCG/ACT May 13, Active 2 puffs Respimat Inhalation Once 2017 a day Levemir ND 95434769904 100 UNIT/ML Active 2 FlexTouch Subcutaneous once a day Ventolin HFA ND 61475119439 90 MCG/ACT Active 2 puffs as Inhalation needed every 6 hrs Aspir-81 [facility] [place] 79215150726 81 MG Orally Active 1 tablet Once a day NovoLog ND 38073846556 100 UNIT/ML Inactive sliding Flexpen Subcutaneous scale three times a day Symbicort ND 49022367953 160-4.5 MCG/ACT May 13, Active 2 puffs Inhalation 2017 Twice a day Ferrous [facility] [place] 00752089749 325 (65 Fe) MG Active 1 tablet Sulfate Orally twice a day Zofran [facility] [place] 25666816111 4 MG Orally Active 1 tablet twice a day Mirtazapine [facility] [place] 00490968735 7.5 MG Orally December Active 2 tablets Once a day 2017 at bedtime Lipitor [facility] [place] 13999843541 40 MG Active TAKE 1 TABLET BY MOUTH EVERY DAY Results No Known Results Summary Purpose eClinicalWorks Submission
[2018-03-04] MEDS ORDERED: MORPHINE 4 MG/ML SYR ONE (16:00)
[2018-03-04] MEDS ORDERED: ONDANSETRON 4 MG/2 ML VIAL ONE (16:00)
[2018-03-04 16:12] LABS: Absolute Lymphocytes (CBC) 0.4 K/uL (0.7-4.9); Absolute Monocytes 0.2 K/uL (0.1-1.3); Absolute Neutrophil 8.2 K/uL (1.8-8.0); Basophils % 0.2 % (0-1.3); Eosinophils % 0.1 % (0-4.4); MCH 26.7 pg (27.0-35.0); MCV 84.1 fL (80-100); MPV 7.3 fL (7.6-11.3); Monocytes % 2.4 % (3.3-12.3); RBC Red Blood Cell Count 4.16 M/uL (3.86-4.86)
[2018-03-04 16:20] LABS: Potassium 4.2 mEq/L (3.6-5.0)
--- NOTE | 2018-03-04 16:27 | RAD REPORT ---
EXAM DESCRIPTION: CT - Stone Protocol - 03/04/2018 4:09 pm CLINICAL HISTORY: Flank pain. COMPARISON: 02/01/2018, 12/30/2017, 11/20/2017 TECHNIQUE: Axial images were obtained without oral or IV contrast. Lack of contrast limits solid org an and vascular assessment. The [id number] spans the entirety of the system partially obscuring uppermost abdomen and lung bases. Coronal reformatted images were obtained and reviewed. All CT scans are performed using dose optimization technique as appropriate and may include automated exposure control or mA/KV adjustment according to patient size. FINDINGS: Large irregular mass is present in the inferior right hemithorax, similar to comparative e xamination. An area of lucency within the mass likely represents necrosis. Matthews area of nodularity is present in the medial left lung base measuring 12 x 5 mm. This appears new since comparative study . Subcutaneous nodule seen in the inferior left chest wall skin measuring 12 mm, unchanged. Pneumoperitoneum has developed since the prior study. This is compatible with a perforated viscus. Al though it is difficult to identify the source of the perforation, perforation of the sigmoid colon in the left lower quadrant it is the favored site (image 65/140) where focal extraluminal air collectio ns are seen. Inflammatory changes are present in this location in the left lower quadrant. Moderate f ecal retention in the colon is seen. A large gallstone is present in a mildly distended gallbladder.The spleen, pancreas within normal terry its. Mild adrenal gland nodularity is again seen. The right kidney appears mildly prominent in size w ith several cysts present. The left kidney appears absent. Large destructive mass in the T12 vertebral body on the right again noted appearing fractionally larg er than on the comparative study. Destructive changes involving the right aspect of the vertebral bod y, right pedicle, right lamina and right posterior elements noted with sclerosis of the vertebral bod y and loss of vertebral body height. The central canal is compromised to 8 mm. Several paraspinal sof t tissue masses are again noted, unchanged. On the left the largest measures 17 mm. On the right the largest measures 13 mm. No bowel obstruction, free fluid or abscess. IMPRESSION: Interval development of pneumoperitoneum since prior study, suspected to be related to p erforation of the colon in the left lower quadrant as detailed. Additional known malignancy related findings are detailed above. Findings were discussed Dr. León in emergency room 4:22 p.m. 03/04/2018 by telephone.
[2018-03-04 16:30] LABS: Albumin 2.7 g/dL (3.2-5.5); Bilirubin Direct 0.6 mg/dL (0-0.2); Bilirubin Total 1.5 mg/dL (0.3-1.2); Protein, Total 8.2 g/dL (6.0-8.3)
[2018-03-04] MEDS ORDERED: NA CHLORIDE 0.9% 1,000 ML ONE (16:36)
[2018-03-04] MEDS ORDERED: PIPER/TAZO/NS 3.375gm 3.375 GM/100 ML BAG ONE (16:36)
[2018-03-04 16:58] LABS: Blood Morphology Comment NOT SEEN (NOT SEEN); Platelet Estimate ADEQ
--- NOTE | 2018-03-04 17:33 | ER ---
Nurse's Notes [facility] Name: Martina Chapa Age: 67 yrs Sex: Female : 1950 Arrival Date: 03/04/2018 Time: 14:36 Bed 20 Private MD: Diagnosis: Perforation of the colon Presentation: 03/04 14:37 Presenting complaint: EMS states: Sent to ER with complaint of pain all over but is aj most severe in right side of abdomen. Family reported that patient has not eaten or drank in 2 days. HX of lung and "spinal" cancer. Patient has documented sacral pressure wound. Transition of care: patient was not received from another setting of care. Onset of symptoms was March 01, 2018. Risk Assessment: Do you want to hurt yourself or someone else? Patient reports no desire to harm self or others. Care prior to arrival: None. 14:37 Method Of Arrival: EMS: [facility] 14:37 Acuity: NATALYA 3 aj 16:45 Initial Sepsis Screen: Does the patient meet any 2 criteria? HR > 90 bpm. No. Patient's em initial sepsis screen is negative. Does the patient have a suspected source of infection? Yes: Skin breakdown/wound Acute abdominal pain. Historical: - Allergies: 14:43 NKDA; aj - Home Meds: 14:43 aspirin 81 mg Oral TbEC once daily [Active]; atorvastatin 40 mg Oral tab 1 tab once aj daily [Active]; ferrous sulfate 325 mg (65 mg iron) Oral TbEC 325 mg twice a day [Active]; Levemir 2 units in the morning. subcutaneous [Active]; Lyrica 50 mg Oral daily [Active]; metoprolol tartrate 50 mg Oral tab 1 tab 2 times per day [Active]; [place] 5-325 mg Oral tab 1 tab every 6 hours [Active]; - PMHx: 14:43 anemia-iron deficiency; CAD; chemotherapy; chronic renal disease; Diabetes - IDDM; aj Hearing Loss; COPD; Hypertension; Lung Cancer; Myocardial infarction; neuropathy; radiation; ADD/ADHD; - PSHx: 14:43 cancer in right hip; cancer on spine; aj - Immunization history:: Adult Immunizations up to date. - Social history:: Smoking status: Patient uses tobacco products, smokes one-half pack cigarettes per day. - Ebola Screening: : Patient negative for fever greater than or equal to 101.5 degrees Fahrenheit, and additional compatible Ebola Virus Disease symptoms Patient denies exposure to infectious person Patient denies travel to an Ebola-affected area in the 21 days before illness onset No symptoms or risks identified at this time. Screenin:39 Abuse screen: Denies threats or abuse. Nutritional screening: No deficits noted. em Tuberculosis screening: No symptoms or risk factors identified. Fall Risk None identified. Assessment: 14:50 General: Appears in no apparent distress. uncomfortable, Behavior is crying, "moaning". em EMS states they were called for hypotension and "pain," diagnosed with lung and spine cancer. Pain: Complains of pain in abdomen Pain currently is 10 out of 10 on a pain scale. Neuro: Level of Consciousness is awake, alert, obeys commands, Oriented to person, place, situation, Speech is slurred, Facial symmetry appears normal. Cardiovascular: Denies chest pain, Capillary refill is > 3 seconds is sluggish in bilateral fingers Rhythm is sinus tachycardia. Respiratory: Airway is patent Respiratory effort is even, unlabored, Respiratory pattern is regular, symmetrical, Breath sounds are clear bilaterally. GI: Abdomen is flat. EENT: No signs and/or symptoms were reported regarding the EENT system. Derm: Skin is intact, Skin is pink, warm \\T\\ dry. Musculoskeletal: Range of motion: intact in all extremities. 14:55 Reassessment: Patient appears in no apparent distress at this time. I agree with above iw assessment by Stanislav Claros LVN. 15:50 Reassessment: Patient appears in no apparent distress at this time. Patient and/or em family updated on plan of care and expected duration. Pain level reassessed. Patient is alert, oriented x 3, equal unlabored respirations, skin warm/dry/pink. family at bedside. 17:00 Reassessment: IV in left forearm infiltrated, IV d/c banged applied, warm compresses em applied. 17:19 Reassessment: Patient appears in no apparent distress at this time. Patient and/or em family updated on plan of care and expected duration. Pain level reassessed. resting comfortably with eyes closed, respirations even and unlabored, family at bedside, skin pink warm and dry. 17:38 Reassessment: Patient appears in no apparent distress at this time. report called to jannie Mcdonald RN at [facility]. 18:00 Reassessment: Patient appears in no apparent distress at this time. Patient and/or em family updated on plan of care and expected duration. Pain level reassessed. c/o Radhames torres PA notified, new orders received. 18:33 Reassessment: Patient appears in no apparent distress at this time. report given to em EMS, will transport to [facility]. Vital Signs: 14:43 BP 116 / 62; Pulse 123; Resp 20; Temp 98.2; Pulse Ox 98% on R/A; Weight 55.79 kg; aj Height 5 ft. 2 in. (157.48 cm); 15:30 BP 116 / 59; Pulse 117; Resp 19; Pulse Ox 97% on R/A; dh3 16:00 BP 103 / 66; Pulse 112; Resp 28; Pulse Ox 98% on R/A; dh3 16:32 BP 108 / 57; Pulse 110; Resp 20; Pulse Ox 100% on R/A; dh3 17:41 BP 123 / 58; Pulse 100; Resp 19; Pulse Ox 99% on R/A; Pain 8/10; em 18:30 BP 144 / 56; Pulse 103; Resp 18; Pulse Ox 98% on R/A; em 14:43 Body Mass Index 22.50 (55.79 kg, 157.48 cm) ED Course: 14:36 Patient arrived in ED. aj 14:39 Triage completed. aj 14:42 Stanislav Claros LVN is Primary Nurse. em 14:43 Arm band placed on left wrist. Patient placed in an exam room. aj 15:30 Radhames Miguel PA is PHCP. [facility] 15:30 Alexandro León MD is Attending Physician. [facility] 15:45 No provider procedures requiring assistance completed. Initial lab(s) drawn, by ok, em sent to lab. Inserted saline lock: 20 gauge in right antecubital area, using aseptic technique. Blood collected. 15:[address] via stretcher. 16:07 CT completed. Patient moved back from CT. 2 16:09 CT Stone Protocol In Process Unspecified. EDMS 16:30 Patient has correct armband on for positive identification. Placed in gown. Bed in low em position. Call light in reach. Adult w/ patient. 16:59 Notified Nurse Practitioner and/or Physician [employer] of a critical lab result(s), dm5 bands 43%. 17:00 IV discontinued, intact, bleeding controlled, No redness/swelling at site. Pressure em dressing applied. 17:14 Inserted saline lock: 22 gauge in right antecubital area, using aseptic technique. dh3 Administered Medications: 16:10 Drug: morphine 2 mg Route: IVP; Site: right antecubital; iw 17:12 Follow up: Response: No adverse reaction; Pain is decreased em 16:10 Drug: Zofran 4 mg Route: IVP; Site: right antecubital; iw 17:12 Follow up: Response: No adverse reaction em 16:50 Drug: Zosyn 3.375 grams Route: IVPB; Infused Over: 60 mins; Site: left forearm; em 18:30 Follow up: Response: No adverse reaction; IV Status: Completed infusion; IV Intake: em 100ml 16:51 Drug: NS 0.9% 1000 ml Route: IV; Rate: 1 bolus; Site: left forearm; em 18:31 Follow up: IV Status: Completed infusion; IV Intake: 1000ml em 18:25 Drug: morphine 2 mg Route: IVP; Site: left antecubital; em 18:31 Follow up: Response: No adverse reaction; Pain is decreased em Intake: 18:30 IV: 100ml; Total: 100ml. em 18:31 IV: 1000ml; Total: 1100ml. em Outcome: 17:31 ER care complete, transfer ordered by MD. allred 17:43 Transferred by ground EMS to other acute care facility, Transfer form completed. X-rays em sent w/ patient. 17:43 Condition: good 17:43 Instructed on the need for admit. 18:34 Patient left the ED. em Signatures: Dispatcher [employer] Jo Torrez RN RN dm5 Myers, Amanda RN Radhames Romeo PA PA jmm Munoz, Edgar, FURNACE DOOR TENDER FURNACE DOOR TENDER em Divine Brown, Evi Bright RN, Victoria Martine Shabazz 3 Corrections: (The following items were deleted from the chart) 17:20 15:50 Reassessment: Patient appears in no apparent distress at this time. Patient em and/or family updated on plan of care and expected duration. Pain level reassessed. Patient is alert, oriented x 3, equal unlabored respirations, skin warm/dry/pink. em 17:24 14:50 Neuro: Level of Consciousness is awake, alert, obeys commands, Oriented to em person, place, situation, em
--- NOTE | 2018-03-04 17:33 | EDPHYS ---
Physician Documentation [facility] Name: Martina Chapa Age: 67 yrs Sex: Female : 1950 Arrival Date: 03/04/2018 Time: 14:36 Bed 20 Private MD: ED Physician Alexandro León HPI: 03/04 15:44 This 67 yrs old Female presents to ER via EMS with complaints of Pain. jmm 15:44 The patient presents with abdominal pain in the right upper quadrant. Onset: The jmm symptoms/episode began/occurred at an unknown time. Patient complains of right sided abdominal pain. . Historical: - Allergies: 14:43 NKDA; aj - Home Meds: 14:43 aspirin 81 mg Oral TbEC once daily [Active]; atorvastatin 40 mg Oral tab 1 tab once aj daily [Active]; ferrous sulfate 325 mg (65 mg iron) Oral TbEC 325 mg twice a day [Active]; Levemir 2 units in the morning. subcutaneous [Active]; Lyrica 50 mg Oral daily [Active]; metoprolol tartrate 50 mg Oral tab 1 tab 2 times per day [Active]; [place] 5-325 mg Oral tab 1 tab every 6 hours [Active]; - PMHx: 14:43 anemia-iron deficiency; CAD; chemotherapy; chronic renal disease; Diabetes - IDDM; aj Hearing Loss; COPD; Hypertension; Lung Cancer; Myocardial infarction; neuropathy; radiation; ADD/ADHD; - PSHx: 14:43 cancer in right hip; cancer on spine; aj - Immunization history:: Adult Immunizations up to date. - Social history:: Smoking status: Patient uses tobacco products, smokes one-half pack cigarettes per day. - Ebola Screening: : Patient negative for fever greater than or equal to 101.5 degrees Fahrenheit, and additional compatible Ebola Virus Disease symptoms Patient denies exposure to infectious person Patient denies travel to an Ebola-affected area in the 21 days before illness onset No symptoms or risks identified at this time. ROS: 15:44 Cardiovascular: Negative for chest pain, palpitations, and edema, Respiratory: Negative jmm for shortness of breath, cough, wheezing, and pleuritic chest pain. 15:44 Constitutional: Positive for poor PO intake. 15:44 Abdomen/GI: Positive for abdominal pain. 15:44 All other systems are negative. Exam: 15:44 Head/Face: atraumatic. Cardiovascular: Regular rate and rhythm. No gallops, murmurs, jmm or rubs. Full/Equal distal pulses. Respiratory: Lungs have equal breath sounds bilaterally, clear to auscultation. No rales, rhonchi or wheezes noted. No increased work of breathing, no retractions or nasal flaring. 15:44 Constitutional: The patient appears in no acute distress, alert, awake. 15:44 Abdomen/GI: Inspection: abdomen appears normal, Bowel sounds: normal, Palpation: soft, mild abdominal tenderness, in all quadrants. 15:44 Skin: Appearance: Color: normal in color. 15:44 Neuro: Orientation: is normal, Mentation: is normal, Memory: is normal. Vital Signs: 14:43 BP 116 / 62; Pulse 123; Resp 20; Temp 98.2; Pulse Ox 98% on R/A; Weight 55.79 kg; aj Height 5 ft. 2 in. (157.48 cm); 15:30 BP 116 / 59; Pulse 117; Resp 19; Pulse Ox 97% on R/A; dh3 16:00 BP 103 / 66; Pulse 112; Resp 28; Pulse Ox 98% on R/A; dh3 16:32 BP 108 / 57; Pulse 110; Resp 20; Pulse Ox 100% on R/A; dh3 17:41 BP 123 / 58; Pulse 100; Resp 19; Pulse Ox 99% on R/A; Pain 8/10; em 18:30 BP 144 / 56; Pulse 103; Resp 18; Pulse Ox 98% on R/A; em 14:43 Body Mass Index 22.50 (55.79 kg, 157.48 cm) aj MDM: 15:35 Patient medically screened. [facility] 18:23 Data reviewed: vital signs, nurses notes, radiologic studies, CT scan. ED course: Dr. chalino León evaluated the patietn at bedside. The family requested transfer due to the patient's oncologist, Dr. Olguin, being based at [facility]. I discussed the patient's case with the attending ED physician whom consulted with surgery. Transfer was accepted. The patient has currently been administered broad spectrum antibiotics along with IV fluids. Patient is currently stable at the time of transfer. . 03/04 15:37 Order name: Amylase, Serum [facility] 03/04 15:37 Order name: Basic Metabolic Panel [facility] 03/04 15:37 Order name: CBC with Diff [facility] 03/04 15:37 Order name: Creatinine for Radiology [facility] 03/04 15:37 Order name: Hepatic Function [facility] 03/04 15:37 Order name: Lipase [facility] 03/04 15:37 Order name: Lactate; Complete Time: 16:37 [facility] 03/04 15:37 Order name: Blood Culture Adult (2) [facility] 03/04 15:38 Order name: Amylase Level [facility] 03/04 15:38 Order name: Basic Metabolic Panel [facility] 03/04 15:38 Order name: CBC with Automated Diff [facility] 03/04 15:38 Order name: Creatinine (Radiology Only); Complete Time: 16:37 [facility] 03/04 15:38 Order name: Liver (Hepatic) Function [facility] 03/04 15:37 Order name: IV Saline Lock; Complete Time: 15:39 [facility] 03/04 15:37 Order name: Labs collected and sent; Complete Time: 15:39 [facility] 03/04 15:44 Order name: CT Stone Protocol; Complete Time: 16:37 [facility] 03/04 16:14 Order name: Manual Differential EDCO Administered Medications: 16:10 Drug: morphine 2 mg Route: IVP; Site: right antecubital; iw 17:12 Follow up: Response: No adverse reaction; Pain is decreased em 16:10 Drug: Zofran 4 mg Route: IVP; Site: right antecubital; iw 17:12 Follow up: Response: No adverse reaction em 16:50 Drug: Zosyn 3.375 grams Route: IVPB; Infused Over: 60 mins; Site: left forearm; em 18:30 Follow up: Response: No adverse reaction; IV Status: Completed infusion; IV Intake: em 100ml 16:51 Drug: NS 0.9% 1000 ml Route: IV; Rate: 1 bolus; Site: left forearm; em 18:31 Follow up: IV Status: Completed infusion; IV Intake: 1000ml em 18:25 Drug: morphine 2 mg Route: IVP; Site: left antecubital; em 18:31 Follow up: Response: No adverse reaction; Pain is decreased em Disposition: 18:51 Co-signature as Attending Physician, Alexandro León MD I agree with the assessment and kdr plan of care. Disposition: 03/04/18 17:31 Transfer ordered to Other Acute Care Facility. Diagnosis is Perforation of the colon. - Reason for transfer: Higher level of care. - Accepting physician is Dark. - Condition is Stable. - Problem is new. - Symptoms are unchanged. Signatures: Dispatcher [employer] Darlin Reyes, RN RN Alexandro Dean MD MD kdr Mickail, Joel, PA PA [facility] Stanislav Claros, BINDER SORTER BINDER SORTER em Divine Brown RN RN iw Corrections: (The following items were deleted from the chart) 15:46 15:38 Abdomen Pelvis W Con+[id number] ordered. [facility] 18:34 17:31 03/04/2018 17:31 Transfer ordered to Other Acute Care Facility. Diagnosis is em Perforation of the colon. Reason for transfer: Higher level of care. Accepting physician is Dark. Condition is Stable. Problem is new. Symptoms are unchanged. [facility]
[2018-03-04 19:11] VITALS: TEMP 98.2
[2018-03-04 19:17] VITALS: BP 144/56; O2SAT 98
== END 2018-03-04 18:34 ==
LOC: ER 14:31
DX: K63.1 Perforation of intestine (nontraumatic) (principal); F17.210 Nicotine dependence, cigarettes, uncomplicated; I10 Essential (primary) hypertension; E11.9 Type 2 diabetes mellitus without complications; I12.9 Hypertensive chronic kidney disease with stage 1 through stage 4 chronic kidney disease, or unspecified chronic kidney disease; E11.22 Type 2 diabetes mellitus with diabetic chronic kidney disease; N18.9 Chronic kidney disease, unspecified; J44.9 Chronic obstructive pulmonary disease, unspecified; Z79.82 Long term (current) use of aspirin; Z79.4 Long term (current) use of insulin; Z85.118 Personal history of other malignant neoplasm of bronchus and lung; Z85.89 Personal history of malignant neoplasm of other organs and systems; Z85.830 Personal history of malignant neoplasm of bone
CPT/HCPCS: 36415; 74176; 76377; 80048; 80076; 82150; 83605; 83690; 85025; 87040 ×2; 99285; J2405; J2543; J7030